=== PATIENT | male | born 1960 | race Caucasian/White ===

== ENCOUNTER 2020-08-07 09:21 | Emergency (ER) | payer MEDICARE, SELFPAY ==
[2020-08-07 09:31] VITALS: BP 170/91; PULSE 99; RESP 24; TEMP 36.5; O2SAT 99
--- NOTE | 2020-08-07 09:45 | ED.SKABFB ---
HPI - Skin/Abscess/Foreign Bdy General Chief complaint: Skin/Abscess/Foreign Body Stated complaint: Leg Swelling Time Seen by Provider: 08/07/20 09:35 Source: patient Mode of arrival: ambulatory Limitations: no limitations History of Present Illness HPI narrative: Yuri Guo is a 60 yo male with a PMH of HTN. prediabetes, high cholesterol. copd, asthma, is a morbidly obese male who comes to express care with complaints of cellulitis of his left leg. His left leg started with a red wendi on Wednesday at the medial upper calf and is spread rapidly to include the whole leg is red erythema erythematous warm to touch, edematous started at the ankle and goes to below the knee foot is still normal color although swollen. Patient reports this is a recurrent event and in the past has been treated with Cipro. States that it hurts to walk on his leg primarily because his foot is swollen although reports pain and tightness in the back of his leg. Discussed with patient the concern for underlying DVT with swelling in his left leg measuring 10 cm larger than the right Patient has not willing at this moment to go to the emergency room for blood work and a venous study however precautions are given to patient and explanations for why if antibiotics do not work in the next day or so that he needs to have further work-up Related Data Home Medications Medication Instructions Recorded Confirmed carvedilol 6.25 mg PO BID 08/07/20 08/07/20 gabapentin [Neurontin] 600 mg PO BID 08/07/20 08/07/20 lisinopril-hydrochlorothiazide 1 tablet PO DAILY 08/07/20 08/07/20 [Zestoretic] meloxicam 15 mg PO DAILY 08/07/20 08/07/20 metformin [Glucophage] 500 mg PO BID 08/07/20 08/07/20 simvastatin [Zocor] 10 mg PO DAILY 08/07/20 08/07/20 tizanidine 4 mg PO BID 08/07/20 08/07/20 Allergies Allergy/AdvReac Type Severity Reaction Status Date / Time diclofenac [From Voltaren] AdvReac Mild Unknown Verified 08/07/20 09:43 Review of Systems Review of Systems: Narrative: CONSTITUTIONAL: Denies fever, chills, sweats. Patient is sweating primarily due to his weight EYES: Denies visual changes, redness, discharge. ENT: Denies rhinorrhea, congestion, sore throat, otalgia. CARDIOVASCULAR: Denies chest pain, palpitations, edema. RESPIRATORY: Denies dyspnea, wheezing, cough GASTROINTESTINAL: Denies abdominal pain, nausea, vomiting, diarrhea. GENITOURINARY: Denies dysuria, hematuria, abnormal discharge SKIN: Denies rash or itching. Cellulitis of the right leg below the knee to the ankle NEUROLOGIC: Denies numbness, or focal weakness. PSYCHIATRIC: Denies anxiety or depression. [facility] Past Medical History Medical History Chronic pain COPD (chronic obstructive pulmonary disease) HTN (hypertension) Hyperlipidemia Prediabetes Family History Family History Father Family history of coronary artery disease Acute myocardial infarction, Onset Age: 63 Mother Cerebrovascular accident, Onset Age: 46 Social History Social History (Updated 08/07/20 @ 09:50 by Lisa Thrasher CNP) Smoking status: Former smoker Alcohol intake: never Gender identity (if verbalized by the patient): Male Comments At time of signature, I agree with nursing past medical, surgical, social and family history. There is no relevant family history pertinent to the presenting complaint. Exam Narrative: Exam Narrative: GENERAL: This is a well-nourished, well-developed patient, in moderate distress. Patient states that the leg looks worse than it feels HEAD: normocephalic, atraumatic. EYES: Sclera clear/white. Vision is grossly intact. EARS: External ears normal. Hearing grossly intact. NOSE: External nose normal without nasal discharge, nares without redness, no rhinorrhea. THROAT: Mucous membranes moist, NECK: Neck supple, non-tender CARDIOVASCULAR:
--- NOTE | 2020-08-07 09:52 | PC.NURSE ---
0931- bright erythema noted below Lt knee, tender and warm to touch- Lt knee 60.5cm/ ankle 39.5 cm, Rt knee 51.5 cm/ ankle 36.5
== END 2020-08-07 10:03 | disposition home or self-care (01) ==
PROVIDERS: Emergency Provider Nurse Practitioner; PCP Emergency Medicine
DX: L03.116 Cellulitis of left lower limb (principal); I10 Essential (primary) hypertension; E78.5 Hyperlipidemia, unspecified; R73.03 Prediabetes; J44.9 Chronic obstructive pulmonary disease, unspecified; E66.01 Morbid (severe) obesity due to excess calories; Z68.43 Body mass index [BMI] 50.0-59.9, adult; Z87.891 Personal history of nicotine dependence
CPT/HCPCS: 99213; G0463

== ENCOUNTER 2022-02-24 17:40 | Observation (INO) | payer MEDICARE, SELFPAY ==
[2022-02-24] VITALS (35 sets, daily range): BP systolic 117–179; BP diastolic 60–105; PULSE 59–120; RESP 10–23; TEMP 36.9; O2SAT 95–100
--- NOTE | ~2022-02-24 | CT_ITS ---
EXAMINATION: CT brain wo con DATE: 02/24/2022 19:55 INDICATION: Right-sided paresthesias. TECHNIQUE: Computed tomography (CT) of the head was performed without intravenous contrast. The dose- length product was 605.33 mGy-cm. Automated exposure control and iterative reconstruction technique w ere employed. COMPARISON: None FINDINGS: Normal brain parenchymal volume for age. No acute intracranial hemorrhage, infarction, mass or mass effect. There are scattered mild periventricular and subcortical white matter changes, most likely related to small vessel ischemic disease (microangiopathy). No ventriculomegaly or midline ioana ft. Basilar cisterns are patent. There is hyperostosis frontalis interna. There is intracranial ather osclerosis. Paranasal sinuses are pneumatized. Mastoids are pneumatized. No depressed skull fractures . IMPRESSION: 1. No acute intracranial abnormality. Reviewed, dictated and finalized at location A.
--- NOTE | ~2022-02-24 | CT_ITS ---
EXAMINATION: CTA chest PE protocol DATE: 02/24/2022 21:03 CDT INDICATION: Chest pain and shortness of breath. Elevated d-dimer. TECHNIQUE: Computed tomographic angiography (CTA) of the chest was performed with 100 mL Omnipaque-35 0 intravenous contrast. The dose-length product was 1179.95 mGy-cm. Maximum intensity projection 3D-r econstructions of the aorta and other arteries were constructed by the technologist on a separate wor kstation. Automated exposure control and iterative reconstruction technique were employed. COMPARISON: Chest x-ray dated 02/24/2022. FINDINGS: Heart size normal. Study is technically adequate without evidence for pulmonary embolism. N o significant pleural or pericardial effusion. No thoracic lymphadenopathy. No pneumothorax. No endob ronchial lesion. Moderate thoracic spondylosis. No focal airspace consolidation. No pulmonary nodules . IMPRESSION: 1. No acute cardiopulmonary disease. No evidence for pulmonary embolism. Reviewed, dictated and finalized at location A.
--- NOTE | ~2022-02-24 | US_ITS ---
EXAMINATION: US venous doppler [facility] DATE: 02/25/2022 09:42 INDICATION: Chest pain. TECHNIQUE: Grayscale ultrasound images without and with compression and Doppler ultrasound images of the bilateral lower extremity veins were obtained. COMPARISON: None. FINDINGS: The visualized portions of right common femoral vein, profunda (deep) femoral vein, femoral vein, pop liteal vein, peroneal veins, posterior tibial veins, and greater saphenous vein outflow are patent. The visualized portions of left common femoral vein, profunda femoral vein, femoral vein, popliteal v ein, and greater saphenous vein outflow are patent. There is thrombosis of the left posterior tibial veins. IMPRESSION: 1. Deep vein thrombosis involving the left posterior tibial veins. Reviewed, dictated and finalized at location A.
--- NOTE | ~2022-02-24 | XR_ITS ---
EXAMINATION: XR chest 1V 02/24/2022 20:01 INDICATION: Covid infection. Increased shortness of breath. PROCEDURE: AP view of the chest COMPARISON: 04/20/2007 FINDINGS: The lungs are clear. The cardiomediastinal silhouette is within normal limits. There are no pleural effusions. There is no pneumothorax suspected. IMPRESSION: 1: NO ACUTE CARDIOPULMONARY DISEASE. Reviewed, dictated and finalized at location A.
--- NOTE | 2022-02-24 17:44 | ECG_ITS ---
Measurements Intervals [place] Rate: 72 P: [place]: 0 QRS: 23 QRSD: 108 T: 29 QT: 382 QTc: 420 Interpretive Statements ATRIAL FIBRILLATION LOW QRS VOLTAGE IN PRECORDIAL LEADS BORDERLINE T WAVE ABNORMALITY- INFERIOR LEADS BASELINE ARTIFACT- I, III, AVL, V2-V3 ABNORMAL ECG Electronically Signed On 02-24-2022 21:25:58 CDT by Panchito Ingram D.O.
[2022-02-24 18:08] LABS: Basophils Percent Auto 0.3 % (0.2-1.2); Eosinophils Absolute Auto 0.2 K/mm3 (0-0.3); Eosinophils Percent Auto 3.1 % (0-4.4); Hematocrit 40.4 % (42.0-52.0); Hemoglobin 13.4 g/dL (14.0-18.0); Immature Granulocyte Absolute 0.03 K/mm3 (0.00-0.031); Immature Granulocyte Percent A 0.4 % (0-0.5); Lymphocytes Absolute Auto 1.71 K/mm3 (0.9-3.2); Lymphocytes Percent Auto 24.2 % (18.3-44.2); Mean Corpuscular HGB Conc 33.2 g/dl (32-36); Mean Corpuscular Hemoglobin 29.6 pg (26-34); Mean Corpuscular Volume 89.4 fl (80-100); Mean Platelet Volume 11.5 fl (7.4-10.4); Monocytes Absolute Auto 0.6 K/mm3 (0.1-0.6); Monocytes Percent Auto 8.3 % (2.6-8.5); Neutrophils Absolute Auto 4.5 K/mm3 (1.3-6.7); Neutrophils Percent Auto 63.7 % (45.5-73.1); Platelet Count Result 166 k/mm3 (150-375); Red Blood Count 4.52 M/mm3 (4.6-6.20); Red Cell Distribution Width 14.8 % (11.5-14.5); White Blood Count 7.1 K/mm3 (4.5-10.0)
[2022-02-24 18:20] LABS: INR 1.1; Prothrombin Time 13.8 Seconds (11.1-14.7)
[2022-02-24 18:21] LABS: Alanine Aminotransferase 22 U/L (6-50); Albumin Level 4.2 g/dL (3.5-5.1); Alkaline Phosphatase 75 U/L (38-126); Anion Gap 8 mmol/L (8-16); Aspartate Amino Transferase 29 U/L (17-59); Bilirubin,Total 0.6 mg/dL (0.2-1.3); Blood Urea Nitrogen 13 mg/dL (9-20); Calcium 9.5 mg/dL (8.4-10.2); Carbon Dioxide 21 mmol/L (22-30); Chloride 107 mmol/L (98-107); Estimated CRCL calculation 159 ml/min; Estimated Glomerular Filt Rate > 60; Glucose 91 mg/dL (65-110); Lactate Dehydrogenase 392 U/L (313-618); Partial Thromboplastin Time 37.9 SECONDS (22.3-36.8); Potassium 3.7 mmol/L (3.4-5.0); Sodium 136 mmol/L (137-145)
--- NOTE | 2022-02-24 18:24 | ED.SOB ---
HPI - SOB/Dyspnea General Chief Complaint: Shortness of Breath/Dyspnea <Nidhi Lemus PA-C - Last Filed: 02/24/22 23:14> Stated Complaint: covid positive, short of breath <Nidhi Lemus PA-C - Last Filed: 02/24/22 23:14> Time Seen by Provider: 02/24/22 17:41 <Nidhi Lemus PA-C - Last Filed: 02/24/22 23:14> Source: patient <Nidhi Lemus PA-C - Last Filed: 02/24/22 23:14> Mode of arrival: ambulatory <PAMELA Mir Last Filed: 02/24/22 23:14> Limitations: no limitations <Nidhi Lemus PA-C - Last Filed: 02/24/22 23:14> History of Present Illness HPI Narrative: This is a 61-year-old male that presents to the emergency department for worsening dyspnea. Reports he tested positive for COVID 8 days ago. He is vaccinated and boosted. Reports he has had chills, sweats, cough, congestion, and sore throat. Also reports over the last couple of days he has noted paresthesias in his right arm and leg. Denies chest pain, or lower extremity edema. <Nidhi Lemus PA-C - Last Filed: 02/24/22 23:14> Related Data Allergies/Adverse Reactions: Allergies Allergy/AdvReac Type Severity Reaction Status Date / Time diclofenac [From Voltaren] AdvReac Mild Unknown Verified 02/24/22 17:50 <Nidhi Lemus PA-C - Last Filed: 02/24/22 23:14> Review of Systems Review of Systems: CONSTITUTIONAL: Reports chills, or sweats. ENT: Reports congestion, sore throat CARDIOVASCULAR: Denies chest pain or edema. RESPIRATORY: Reports cough and dyspnea. MUSCULOSKELETAL: Reports back pain, joint pain, and myalgia. NEUROLOGIC: Reports numbness. Denies headache, or weakness. <PAMELA Mir Last Filed: 02/24/22 23:14> All systems reviewed & are unremarkable except as noted in HPI and below <Nidhi Lemus PA-C - Last Filed: 02/24/22 23:14> [facility] Past Medical History Medical History: Medical History Chronic pain COPD (chronic obstructive pulmonary disease) HTN (hypertension) Hyperlipidemia Prediabetes <Nidhi Lemus PA-C - Last Filed: 02/24/22 23:14> Family History Family History: Family History Father Family history of coronary artery disease Acute myocardial infarction, Onset Age: 63 Mother Cerebrovascular accident, Onset Age: 46 <Nidhi Lemus PA-C - Last Filed: 02/24/22 23:14> Social History Social History: Social History Social History: Patient does not drink caffeine, patient exercises daily. Smoking status: Never smoker Second hand tobacco smoke exposure: Yes Alcohol intake: current Alcohol use details: Patient drinks alcohol once in a while. Substance use: never Substance use type: does not use Additional living arrangements comments: Patient is . Additional occupation/education comments: Patient is disabled. Gender identity (if verbalized by the patient): Male Sexual Orientation (if Verbalized by the Patient): Straight or Heterosexual <Nidhi Lemus PA-C - Last Filed: 02/24/22 23:14> Exam Narrative: GENERAL: Well-appearing, well-nourished, and in no acute distress. HEAD: Normocephalic, atraumatic. EYES: PERRLA and EOMI. ENT: Nares clear, no rhinorrhea or epistaxis. Mucous membranes moist. Oropharynx without tonsillar hypertrophy exudate or other lesions. Bilateral TMs pearly walter non-bulging NECK: Supple. No adenopathy or masses. CHEST: Clear to auscultation. No respiratory distress. No wheezes rales or rhonchi HEART: Irregularly irregular. No murmur heard. Normal peripheral pulses. EXTREMITIES: Normal range of motion. No edema. Strength equal in bilateral upper and lower extremities (5/5) SKIN: Warm, dry, no rash. NEURO: No focal deficits. Alert and oriented x3. Cranial nerves II through XII grossly PSYCH: Normal moo
[2022-02-24 18:33] LABS: Troponin I < 0.012 ng/mL (0.000-0.034)
[2022-02-24 19:23] LABS: SARS-CoV-2 RNA PCR Positive
--- NOTE | 2022-02-24 21:47 | PM.IMHP ---
H&P: HPI History of Present Illness Date/Time: 02/24/22 21:47 Chief Complaint: shortness of breath Narrative: This is a 61-year-old male with past medical history significant for morbid obesity, atrial fibrillation, hypertension. Patient presents to the emergency room due to shortness of breath, night sweats, chills, fevers, tested positive for COVID 8 days ago patient is fully vaccinated and booster received as well against COVID. states that tested positive for COVID as well but that she is doing much better and she is at home , patient has had poor appetite, however no nausea, no vomiting, no abdominal pain has been getting progressively short of breath, had numbness and tingling sensation around his mouth with numbness as well and right-sided paresthesias with petechial rash on his chest which he attributes to cough, also tested his pulse oximetry at home and was 94%. Patient had a cough productive of yellow sputum which has now cleared. Preliminary workup has been essentially nonrevealing. A CT angiogram of the chest did not show acute pulmonary embolism. Patient also found to be on atrial fibrillation. Patient retested positive for COVID now has been admitted for further evaluation management and treatment. Review of Systems Review of Systems: NIGHT SWEATS, SHORTNESS OF BREATH, GENERALIZED MALAISE, COUGH, POOR APPETITE. Constitutional: Constitutional: Reports chills, Reports excessive sweating, Reports fatigue, Reports fever(s), Reports malaise, Reports night sweats and Reports poor appetite Eyes: Eyes: Denies change in vision, Denies floaters, Denies irritation and Denies other visual disturbances ENT: Denies dysphagia, Denies vertigo, Denies dizziness, Denies nasal congestion, Denies nasal obstruction and Denies odynophagia Cardiovascular: Cardiovascular: Denies irregular heart rhythm, Denies leg ulcers, Denies leg edema, Denies lightheadedness, Denies radiating jaw, neck or arm pain and Denies palpitations Respiratory: Respiratory: Reports cough, Denies hemoptysis, Reports excessive phlegm production and Reports dyspnea Gastrointestinal: Gastrointestinal: Denies abdominal pain, Denies dyspepsia, Denies heartburn, Denies diarrhea, Denies nausea and Denies vomiting Genitourinary: Genitourinary: Denies dysuria Musculoskeletal: Musculoskeletal: Reports myalgias Integumentary/Breasts: Skin/Breast: Denies rash Neurologic: Denies focal weakness, Denies Sensory deficit (Neuro), Reports tingling and Reports paresthesias Psychiatric: Psychiatric: Reports no additional psychiatric complaints and Reports as per HPI Endocrine: Endocrine: Denies cold intolerance, Denies fatigue, Denies flushing, Denies heat intolerance, Denies polyphagia, Denies polydipsia and Denies palpitations Hematologic/Lymphatic: Hematologic/Lymphatic: Reports no additional hematologic/lymphatic complaints and Reports as per HPI Allergic/Immunologic: Allergic/Immunologic: Reports no additional allergic/immunologic complaints and Reports as per HPI PMFSH Past Medical History Medical History Chronic pain COPD (chronic obstructive pulmonary disease) HTN (hypertension) Hyperlipidemia Prediabetes Family History Family History Father Family history of coronary artery disease Acute myocardial infarction, Onset Age: 63 Mother Cerebrovascular accident, Onset Age: 46 Social History Social History (Updated 02/25/22 @ 02:22 by Magda Morris RN) Social History: Patient does not drink caffeine, patient exercises daily. Smoking packs per day: 1.5 Smoking cigarettes per day: 30.0 Years smoked: 11 Smoking pack-years: 16.50 Smoking status: Former smoker Tobacco type: cigarettes Second hand tobacco smoke exposure: Yes Alcohol intake: current Alcohol use details: Patient drinks alcohol once in a [facility]
[2022-02-24 22:18] LABS: Troponin I < 0.012 ng/mL (0.000-0.034)
[2022-02-24] MEDS: HEPARIN SOD/D5W 100 UNITS/ML 25,000 UNITS/250 ML BAG 15 UNITS IV CONT (23:08)
[2022-02-24] MEDS: HEPARIN SODIUM 5,000 UNITS/ML VIAL 10000 UNITS IV PUSH (23:10)
[2022-02-25] VITALS (13 sets, daily range): BP systolic 142–177; BP diastolic 78–87; PULSE 53–105; RESP 14–20; TEMP 36.6–36.7; O2SAT 99–100; BMI 47.1
--- NOTE | 2022-02-25 | ECHO_ITS ---
Patient Info Name: Yuri Guo Age: 61 years : 1960 Gender: Male Ht: 78 in Wt: 404 lbs BSA: 3.25 m2 HR: 71 bpm BP: 171 / 80 mmHg Heart Rhythm: Atrial Fibrillation Exam Date: 02/25/2022 11:56 AM Exam Location: [facility] Patient Status: Outpatient Admit Date: 02/24/2022 Staff Ordering Physician: Adolfo Clements MD Charge Entry Specialist: Jose Azevedo, ARIANNA, RT Attending Provider: Cecilia Champagne MD Referring Physician: Starr MAR; Exam Type: CA echo doppler color flow Study Info Indications I48.1 - Persistent atrial fibrillation Complete two-dimensional, color flow and Doppler transthoracic echocardiogram is performed. Strain analysis performed. Summary 1. Technically difficult study with limited views. Regional wall motion assessment limited due to poor endomyocardial border definition. 2. Left ventricular chamber dimension is normal. 3. Left ventricular systolic function is normal, estimated at 65-70%. 4. There is mildly increased left ventricular wall thickness. 5. Global longitudinal strain is moderately elevated at -13 %. 6. Left atrial chamber dimension is severely enlarged. 7. Right atrial chamber dimension is severely enlarged. 8. There is no aortic valve stenosis. 9. There is mild mitral valve regurgitation. 10. There is mild tricuspid valve regurgitation. 11. No pulmonary hypertension, estimated pulmonary arterial systolic pressure is 27 mmHg. Left Ventricle Left ventricular chamber dimension is normal. Left ventricular systolic function is normal, estimated at 65-70%. There is mildly increased left ventricular wall thickness. The left ventricular diastolic function is indeterminate. Global longitudinal strain is moderately elevated at -13 %. Technically difficult study with limited views. Regional wall motion assessment limited due to poor endomyocardial border definition. Right Ventricle Right ventricular chamber dimension is normal. Right ventricular systolic function is normal. Left Atria Left atrial chamber dimension is severely enlarged. Right Atria Right atrial chamber dimension is severely enlarged. Aortic Valve The aortic valve is not well visualized. There is no aortic valve stenosis. There is no aortic valve regurgitation. Pulmonic Valve The pulmonic valve is not well visualized. Mitral Valve The mitral valve has normal leaflets. There is mild mitral valve regurgitation. The mitral valve annulus is mildly calcified. Tricuspid Valve The tricuspid valve leaflets are not well visualized. There is mild tricuspid valve regurgitation. No pulmonary hypertension, estimated pulmonary arterial systolic pressure is 27 mmHg. Pericardium/Pleural The pericardium appears normal. There is small pericardial effusion. Aorta The aortic root size at the sinus of Valsalva is normal. There is mild aortic atherosclerosis. Left Ventricular Outflow Tract Name Value Normal LVOT 2D LVOT Diameter 2.3 cm LVOT Doppler LVOT Peak Gradient 3 mmHg LVOT Mean Gradient 2 mmHg LVOT VTI
[2022-02-25 00:57] LABS: Troponin I < 0.012 ng/mL (0.000-0.034)
--- NOTE | 2022-02-25 01:25 | ADMGEN ---
This patient, Yuri Guo, was admitted to IMU Room 209-01. Patient/family oriented to hospital policies and general routines including ID bracelet, bed and alarms, visiting hours, pain management, procedures, bathroom and other care routines, personal items, smoking policy, room service/diet, and visiting hours. Information on how to activate the Rapid Response Team has been discussed. Patient/Family are encouraged to report perceived risks to care and to ask questions if they do not understand what they are told or what they should do.
[2022-02-25 02:14] LABS: Glucose Point of Care 93 mg/dl (65-105)
[2022-02-25 05:02] LABS: Basophils Percent Auto 0.5 % (0.2-1.2); Eosinophils Absolute Auto 0.3 K/mm3 (0-0.3); Eosinophils Percent Auto 3.9 % (0-4.4); Hematocrit 35.8 % (42.0-52.0); Hemoglobin 12.4 g/dL (14.0-18.0); Immature Granulocyte Absolute 0.03 K/mm3 (0.00-0.031); Immature Granulocyte Percent A 0.4 % (0-0.5); Lymphocytes Absolute Auto 2.56 K/mm3 (0.9-3.2); Mean Corpuscular HGB Conc 34.6 g/dl (32-36); Mean Corpuscular Hemoglobin 30.9 pg (26-34); Mean Corpuscular Volume 89.3 fl (80-100); Mean Platelet Volume 11.5 fl (7.4-10.4); Monocytes Absolute Auto 0.7 K/mm3 (0.1-0.6); Monocytes Percent Auto 9.6 % (2.6-8.5); Neutrophils Absolute Auto 3.9 K/mm3 (1.3-6.7); Neutrophils Percent Auto 51.6 % (45.5-73.1); Platelet Count Result 156 k/mm3 (150-375); Red Blood Count 4.01 M/mm3 (4.6-6.20); Red Cell Distribution Width 14.6 % (11.5-14.5); White Blood Count 7.5 K/mm3 (4.5-10.0)
[2022-02-25 05:13] LABS: INR 1.2; Prothrombin Time 15.2 Seconds (11.1-14.7)
[2022-02-25 08:20] LABS: Glucose Point of Care 93 mg/dl (65-105)
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
[2022-02-25] MEDS: carvediloL 6.25 MG TABLET PO (09:14)
[2022-02-25] MEDS: lisinopriL 20 MG TABLET PO (09:14)
[2022-02-25 11:35] LABS: Partial Thromboplastin Time 59.4 SECONDS (22.3-36.8)
--- NOTE | 2022-02-25 12:00 | PM.DS ---
DS: Admitting Diagnosis Discharge Date 02/25/22 1200 Admitting Diagnosis COVID 19/New onset Afib/DVT DS: Discharge Diagnosis Discharge Diagnosis (1) COVID-19: Code(s): U07.1 - COVID-19 Status: Acute Assessment and Plan: admit to regular medical floor chest x-ray and CT angiogram with no infiltrates not requiring incremental amounts of oxygen no indication for remdesivir at this time continue to monitor supportive care Seems stable (2) Atrial fibrillation: Qualifiers: Atrial fibrillation type: persistent (not longstanding) Qualified Code(s): I48.19 - Other persistent atrial fibrillation Code(s): I48.91 - Unspecified atrial fibrillation Status: Acute Assessment and Plan: rate controlled in the 90s Continue carvedilol to 6.25mg PO BID Start patient on Xarelto Follow up with cardiology as indicated (3) COPD (chronic obstructive pulmonary disease): Qualifiers: COPD type: unspecified COPD Qualified Code(s): J44.9 - Chronic obstructive pulmonary disease, unspecified Code(s): J44.9 - Chronic obstructive pulmonary disease, unspecified Status: Acute Assessment and Plan: breathing treatment as needed (4) HTN (hypertension): Qualifiers: Hypertension type: essential hypertension Qualified Code(s): I10 - Essential (primary) hypertension Code(s): I10 - Essential (primary) hypertension Status: Acute Assessment and Plan: resume home meds Remains high at 171/80 Give one dose of hydralazine IV Probably related to medical condition continue to monitor (5) Diabetes mellitus: Code(s): E11.9 - Type 2 diabetes mellitus without complications Status: Acute Assessment and Plan: Current glucose is 91 Looks to be diet controlled as he is not on any medications at home (6) Morbid obesity with BMI of 45.0-49.9, adult: Code(s): E66.01 - Morbid (severe) obesity due to excess calories; Z68.42 - Body mass index [BMI] 45.0-49.9, adult Status: Acute Assessment and Plan: Lifestyle changes Diet changes (7) DVT (deep venous thrombosis): Code(s): I82.409 - Acute embolism and thrombosis of unspecified deep veins of unspecified lower extremity Status: Acute Assessment and Plan: Venous doppler found a DVT in the left posterior tibial veins Xarelto started Probably secondary to sediment lifestyle Education given about bleeding precautions DS: Summary Hospital Course Hospital Course: Patient is 61-year-old male with a past medical history of morbid obesity, atrial fibrillation, hypertension who presented the emergency room due to shortness of breath, night sweats, chills, fevers. Patient was noted to test positive for COVID 8 days ago and is fully vaccinated with a booster. Upon arrival to the ED it was noted that patient was in AFib with a rate controlled of 72. This seems to be a new finding for this patient as he denies having AFib in the past. Cardiology was consulted and patient has been started on anticoagulation. CTA was completed which showed no acute cardiopulmonary disease or evidence of PE. Chest x-ray showed no acute cardiopulmonary disease. Head CT showed no intracranial abnormality. Venous Doppler did show a DVT in the left posterior tibial veins. The patient has been started on anticoagulation this should be sufficient enough for the DVT as well. Patient feels great is ready to go home. He denies any chest pain, shortness of breath, nausea, vomiting, diarrhea, constipation, weakness or fatigue. Patient did state that he has some shortness of breath however it is his normal COPD stuff. I did go over with the patient about bleeding precautions while being on the Xarelto. Echo was also performed and showed. Patient is stable for discharge for labs and vital signs. Patient is really wanting to go at this [facility]
[2022-02-25 12:25] LABS: Glucose Point of Care 117 mg/dl (65-105)
[2022-02-25] MEDS: RIVAROXABAN 15 MG TABLET PO (14:46)
--- NOTE | 2022-02-25 15:57 | PC.NURSE ---
Discharge forms given and explained to pt. PIV taken out by PEDICAB DRIVER and pt taken down to Lobby to meet with all personal belongings, and discharge forms. No events noted.
== END 2022-02-25 15:00 | disposition home or self-care (01) ==
LOC: ANHED 23:10 → ANHIMU 02-25 09:45
PROVIDERS: Physician Assistant; Admitting Provider Internal Medicine; Emergency Provider General Practice; PCP Emergency Medicine; Visit Provider Nurse Practitioner
DX: U07.1 COVID-19 (principal); I48.91 Unspecified atrial fibrillation; J44.9 Chronic obstructive pulmonary disease, unspecified; E11.9 Type 2 diabetes mellitus without complications; E66.01 Morbid (severe) obesity due to excess calories; I82.442 Acute embolism and thrombosis of left tibial vein; I10 Essential (primary) hypertension; E78.5 Hyperlipidemia, unspecified; Z77.22 Contact with and (suspected) exposure to environmental tobacco smoke (acute) (chronic); Z68.42 Body mass index [BMI] 45.0-49.9, adult; Z79.899 Other long term (current) drug therapy
CPT/HCPCS: 36415; 70450; 71045; 71275; 80053; 82728; 82948; 83615; 84443; 84484; 85025; 85380; 85610; 85730; 93005; 93306; 93970; 96365; 96375; 99285; A9270; C9803; G0378; J0131; J1644; Q9967; U0003; U0005

== ENCOUNTER 2022-04-17 00:22 | Day surgery (SDC) | payer MEDICARE, SELFPAY ==
[2022-04-15 15:46] VITALS: BMI 46.6
[2022-04-17] VITALS (7 sets, daily range): BP systolic 107–134; BP diastolic 57–87; PULSE 63–74; RESP 17–18; TEMP 36.4; O2SAT 98–100
[2022-04-17 12:22] LABS: Anion Gap 11 mmol/L (8-16); Blood Urea Nitrogen 12 mg/dL (9-20); Carbon Dioxide 29 mmol/L (22-30); Chloride 97 mmol/L (98-107); Estimated CRCL calculation 155 ml/min; Estimated Glomerular Filt Rate > 60; Glucose 89 mg/dL (65-110); Magnesium 1.9 mg/dL (1.6-2.3); Potassium 3.8 mmol/L (3.4-5.0); Sodium 137 mmol/L (137-145)
--- NOTE | 2022-04-17 13:12 | WPDANESEPPF ---
Anes - Initial Pre Proc Eval Procedure: Operation Date: 04/17/22 14:30 Proposed Procedures p Electrical Cardioversion - Adolfo Clements MD Date/Time: 04/17/22 13:12 Surgeon: Adolfo Clements MD Pre Op Diagnosis: A-Fib Patient Data Age: 61 Gender: M Height: 1.98 m Weight: 183.2 kg Last Vital Signs Temp 97.6 F 04/17/22 12:00 Pulse 68 04/17/22 12:00 Resp 17 04/17/22 12:00 BP 125/71 04/17/22 12:00 Pulse Ox 98 04/17/22 12:00 O2 Del Method Room Air 04/17/22 12:00 Allergies Allergy/AdvReac Type Severity Reaction Status Date / Time diclofenac [From [facility]] AdvReac Mild Unknown Verified 04/17/22 12:09 Home Medications Medication Instructions Recorded Confirmed Type gabapentin 600 mg tablet 600 mg PO HS 02/25/22 04/15/22 History rivaroxaban 20 mg tablet (Xarelto) 20 mg PO DAILY@1700 #30 tabs 02/25/22 04/15/22 Rx tizanidine 4 mg tablet 4 mg PO HS 02/25/22 04/15/22 History albuterol sulfate 2.5 mg/3 mL 2.5 mg (3 mL) inhalation Q4-6H PRN 02/27/22 04/15/22 Rx (0.083 %) solution for nebulization shortness of breath or wheezing #540 mL fluticasone propionate 50 1 spray intranasal BID #16 grams 02/27/22 04/15/22 Rx mcg/actuation nasal spray,suspension (Flonase Allergy Relief) semaglutide 0.25 mg or 0.5 mg (2 0.5 mg (0.4 mL) subcut WEEKLY #6 mL 03/30/22 04/15/22 Rx mg/1.5 mL) subcutaneous pen injector carvedilol 6.25 mg tablet 6.25 mg PO BID 04/15/22 04/15/22 History famotidine 20 mg tablet 40 mg PO DAILY 04/15/22 04/15/22 History lisinopril 20 1 tablet PO DAILY 04/15/22 04/15/22 History mg-hydrochlorothiazide 25 mg tablet simvastatin 10 mg tablet 10 mg PO HS 04/15/22 04/15/22 History Laboratory Tests 04/17/22 11:59 Sodium 137 mmol/L mmol/L (137-145) Potassium 3.8 mmol/L mmol/L (3.4-5.0) Chloride 97 mmol/L L mmol/L (98-107) Carbon Dioxide 29 mmol/L mmol/L (22-30) Anion Gap 11 mmol/L mmol/L (8-16) BUN 12 mg/dL mg/dL (9-20) Creatinine 0.80 mg/dL mg/dL (0.7-1.3) Estim Creat Clear Calc 155 ml/min ml/min Estimated GFR > 60 (59 - ) Glucose 89 mg/dL mg/dL (65-110) Calcium 9.0 mg/dL mg/dL (8.4-10.2) Magnesium 1.9 mg/dL mg/dL (1.6-2.3) Patient hx anesthesia problems: none Family hx anesthesia problems: none Results Review: All pre-operative results and documents have been reviewed as part of the pre-operative evaluation. FOR[facility] Past Medical History Medical History Chronic pain COPD (chronic obstructive pulmonary disease) HTN (hypertension) Hyperlipidemia Prediabetes Family History Family History Father Family history of coronary artery disease Acute myocardial infarction, Onset Age: 63 Mother Cerebrovascular accident, Onset Age: 46 Social History Social History (Updated 02/25/22 @ 02:22 by Magda Morris RN) Social History: Patient does not drink caffeine, patient exercises daily. Smoking packs per day: 1.5 Smoking cigarettes per day: 30.0 Years smoked: 12 Smoking pack-years: 18.00 Smoking status: Former smoker Tobacco type: cigarettes Second hand tobacco smoke exposure: Yes Additional smoking assessment comments: quit smoking in 1986 Alcohol intake: current Drinks per week: 0 Alcohol use details: approximatly once a month Substance use: current Substance use type: marijuana Other substance usage details: uses edibles at night to help sleep Last use: 04/14/22 Living arrangements: with family Additional living arrangements comments: Patient is . Additional occupation/education comments: Patient is disabled. Gender identity (if verbalized by the patient): Male Sexual Orientation (if Verbalized by the Patient): Straight or Heterosexual Spiritual care concerns: No Agree to bl
--- NOTE | 2022-04-17 14:03 | P.PCNCC_ITS ---
Cardiac Cath Procedure Note Date of procedure:: 04/17/22 Performing physician:: Adolfo Clements MD Indication:: Persistent atrial fibrillation Brief clinical history:: This is a 61-year-old man who was referred for consultation because of atrial fibrillation of unknown chronicity. He is asymptomatic of his arrhythmia. Principal comorbidity is morbid obesity. An attempt at restoring sinus rhythm has been recommended following sufficient anticoagulation. Procedure Procedure performed:: DC cardioversion Sedation/Medication given:: Sedation per Anesthesia Estimated blood loss:: 0 Procedure note:: Patient was brought to the GI lab where the anesthesia service evaluated the patient and provided sedation. He was placed in the supine position with fibrillator patches in the AP position. The device was synchronized and set at 200 joules. Following sedation he was shocked at 200 joules with no change in the cardiac rhythm. He was still well sedated. The energy was turned up to 360 joules and resynchronize. I shock at that energy level also did not change the rhythm. Findings:: As above Conclusion:: Unsuccessful but uncomplicated attempt at DC cardioversion of atrial fibrillation with persistent atrial fibrillation which will be the patient's chronic rhythm going forward Adolfo Clements MD [facility]
--- NOTE | 2022-04-17 14:45 | ECG_ITS ---
Measurements Intervals [place] Rate: 72 P: CT: 0 QRS: 9 QRSD: 111 T: 23 QT: 396 QTc: 434 Interpretive Statements ATRIAL FIBRILLATION BORDERLINE AV CONDUCTION DELAY LOW QRS VOLTAGE IN PRECORDIAL LEADS ABNORMAL ECG COMPARED TO ECG 02/24/2022 17:54:14 INTRAVENTRICULAR CONDUCTION DELAY NOW PRESENT Electronically Signed On 04-17-2022 11:58:18 CDT by Panchito Ingram D.O.
== END 2022-04-17 14:45 | disposition home or self-care (01) ==
LOC: ANHENDO 00:23 → ANHCPCTRAN 13:29 → ANHENDO 05-01 12:09
PROVIDERS: PCP Emergency Medicine; Visit Provider Specialist
PROC: 5A2204Z Restoration of Cardiac Rhythm, Single (ICD-10-PCS; principal; 2022-04-17 14:30)
DX: I48.19 Other persistent atrial fibrillation (principal); I45.9 Conduction disorder, unspecified; Z86.16 Personal history of COVID-19; I10 Essential (primary) hypertension; E78.5 Hyperlipidemia, unspecified; J44.9 Chronic obstructive pulmonary disease, unspecified; G47.30 Sleep apnea, unspecified; G89.29 Other chronic pain; Z86.718 Personal history of other venous thrombosis and embolism; Z87.891 Personal history of nicotine dependence; Z79.01 Long term (current) use of anticoagulants; F12.90 Cannabis use, unspecified, uncomplicated; Z79.51 Long term (current) use of inhaled steroids; E66.01 Morbid (severe) obesity due to excess calories; Z68.42 Body mass index [BMI] 45.0-49.9, adult
CPT/HCPCS: 36415; 80048; 83735; 92960; J2704

== ENCOUNTER 2023-11-02 13:08 | Outpatient (CLI) | payer MEDICARE, SELFPAY ==
--- NOTE | ~2023-11-02 | CT_ITS ---
EXAMINATION: CT shoulder RT w con DATE: 11/02/2023 14:11 INDICATION: 2 months of right-sided shoulder pain TECHNIQUE: High resolution computed tomography (CT) of the right shoulder was performed with 100 mL O mnipaque-350 intravenous contrast. Additional sagittal and coronal reconstructions were performed. Au tomated exposure control and iterative reconstruction technique were employed. The dose-length produc t was 520.03 mGy-cm. COMPARISON: None FINDINGS: Bone alignment is normal. The acromion undersurface is flat in morphology (type I) with small subacro mial spurs along the lateral margin of the acromion. No fracture. Mild right glenohumeral osteoarthri tis with mild subarticular cystlike changes along the inferior rim of the glenoid. There is also mild acromioclavicular osteoarthritis. No glenohumeral joint effusion or other abnormal fluid collections . No asymmetric muscular atrophy of the rotator cuff or remaining shoulder girdle musculature. No pat hologically enlarged lymphadenopathy at the right axilla or in the visualized base of the right neck or right-sided the superior mediastinum. Visualized portion of the right upper lung are clear. IMPRESSION: 1. Mild right glenohumeral and acromioclavicular osteoarthritis. Reviewed, dictated and finalized at location A.
== END 2023-11-02 13:09 ==
LOC: GOSHIMG 13:09
PROVIDERS: PCP Emergency Medicine; Visit Provider Emergency Medicine
DX: M25.511 Pain in right shoulder (principal); M19.011 Primary osteoarthritis, right shoulder
CPT/HCPCS: 73201; Q9967

== ENCOUNTER 2025-05-16 10:59 | Inpatient (IN) | payer MEDICARE, SELFPAY ==
[2025-05-16] VITALS (23 sets, daily range): BP systolic 90–155; BP diastolic 50–80; PULSE 60–95; RESP 12–20; TEMP 36.4–36.9; O2SAT 95–100; BMI 49.6
--- NOTE | ~2025-05-16 | CT_ITS ---
Yuri Guo EXAMINATION: CT abdomen pelvis w con COMPARISON: None HISTORY: anemia TECHNIQUE: Axial images were obtained through the abdomen, pelvis post administration of IV contrast. Oral contrast was also administered. Coronal reconstruction images were obtained from the axial views. CT scan performed using dose optimization techniques including the following automated exposure control; adjustment of mA and/or kV; use of iterative reconstruction technique. Automatic exposure control was used to reduce radiation dose. Permanent radiation dose record is archived to PACS. FINDINGS: CT abdomen: LUNG BASES: Mild cardiomegaly. Chronic changes in the lung bases. Elevation left hemidiaphragm. LIVER: Nodularity of the liver contours with heterogeneity of the liver which probably relates to underlying cirrhotic disease. Portal vein patent. No intrahepatic biliary duct dilatation. SPLEEN: Unremarkable. KIDNEYS: Right Kidney: Right kidney lower pole simple cyst 1.4 x 1.5 cm. Left Kidney: Unremarkable. No calculi. No hydronephrosis ADRENAL GLANDS: Unremarkable. PANCREAS: Unremarkable. GALLBLADDER/BILIARY: Gallbladder is contracted with hyperemia of the gallbladder mucosa. STOMACH AND ESOPHAGUS: The stomach is decompressed. BOWEL/MESENTERY: Moderate fecal content, no colitis or diverticulitis. Appendix normal. Mesentery normal. No dilated small bowel loops. ADENOPATHY/RETROPERITONEUM: No lymphadenopathy. AORTA/VASCULATURE: Normal caliber aorta. FREE FLUID OR FREE AIR: None. CT pelvis: SOLID ORGANS/REPRODUCTIVE: Unremarkable. BLADDER: Within normal limits. OSSEOUS STRUCTURES: Severe degenerative changes acetabular femoral joints and lumbar spine. No sclerotic or lytic lesions. OVERLYING SOFT TISSUES: Unremarkable. IMPRESSION: 1. No etiology to explain anemia. Reviewed, dictated and finalized at location P.
--- NOTE | ~2025-05-16 | CT_ITS ---
CTA CHEST ABDOMEN PELVIS CLINICAL HISTORY: acute anemia of unknown etiology . COMPARISON: CT abdomen and pelvis one day prior CTA chest 02/24/2022 TECHNIQUE: Helical CT performed from thoracic inlet to symphysis pubis IV contrast information not listed in PACS Coronal, sagittal reformats. Multiplanar MIPS CT images acquired with automatic exposure control for dose reduction DLP: 2488 mGy-cm FINDINGS: CHEST- Respiratory motion artifact. Thoracic Aorta: No dissection. No aneurysm. Pulmonary arteries: Normal caliber. Suboptimal opacification and motion artifact; no large central PE, more distal vessels cannot be evaluated. Lungs/Pleura: Clear. Heart: Cardiomegaly. RV/LV ratio elevated. Coronary artery calcifications Tracheobronchial tree: Patent. Nodes: No enlarged nodes. Bones: No acute bony abnormality. Soft tissues: Unremarkable. ABDOMEN/PELVIS- CTA Abdominal aorta: No aneurysm or dissection. Atherosclerotic disease. Common iliac arteries: Patent. External iliac arteries: Patent. Hypogastric arteries: Patent. CFAs: Patent. Proximal visualized SFAs and profundas: Patent. Celiac: Patent. Mild ostial narrowing and inferior angulation from median arcuate ligament attenuation. SMA: Patent. ZEINA: Patent. Renal arteries: Moderate stenoses. NON-CTA Liver: Cirrhosis, steatosis. Gallbladder: Mild nonspecific wall thickening. Spleen: Unremarkable. Pancreas: Unremarkable. Adrenal glands: Unremarkable. Kidneys: Right kidney- No hydronephrosis. No renal stones. Left kidney- No hydronephrosis. No renal stones. Distal esophagus/stomach: Unremarkable. Small bowel loops: Normal caliber and wall thickness. Colon: Normal caliber and wall thickness. Normal RLQ appendix. Nodes: No enlarged nodes. Peritoneum: No ascites. No free air. Urinary bladder: Unremarkable. Prostate: Unremarkable. Bones: No acute bony abnormality. Soft tissues: Unremarkable. IMPRESSION: CHEST- 1. No acute cardiopulmonary findings. ABDOMEN/PELVIS- 1. No acute abdominopelvic findings. Reviewed, dictated and finalized at location R.
--- NOTE | 2025-05-16 11:07 | ECG_ITS ---
Test Date: 2025-05-16 11:13:37 Measurements Intervals [place] Rate: 71 P: 0 NV: 0 QRS: 15 QRSD: 114 T: 23 QT: 398 QTc: 435 Interpretive Statements ATRIAL FIBRILLATION INTRAVENTRICULAR CONDUCTION DELAY LOW QRS VOLTAGE IN PRECORDIAL LEADS NONSPECIFIC ST & T-WAVE ABNORMALITY- DIFFUSE LEADS ABNORMAL ECG BASELINE ARTIFACT- I, II, III, AVR, AVL, AVF No previous ECG available for comparison Electronically Signed On 05-16-2025 11:32:42 CDT by Panchito Ingram D.O.
[2025-05-16 11:22] LABS: Immature Granulocyte Percent A 0.9 % (0-0.5); Immature Reticulocyte Fraction 39.0 % (3.0-15.9); Lymphocytes Absolute Auto 1.55 K/mm3 (0.9-3.2); Mean Corpuscular HGB Conc 28.1 g/dl (32-36); Mean Corpuscular Hemoglobin 20.6 pg (26-34); Mean Corpuscular Volume 73.4 fl (80-100); Nucleated Red Blood Cells Absolute Auto 0.000 K/mm3 (0.0-0.012); Nucleated Red Blood Cells Perc 0.0 % (0.0-0.2); Platelet Count Result 232 k/mm3 (150-375); Red Blood Count 2.52 M/mm3 (4.6-6.20); Reticulocyte Hemoglobin Conten 19.6 pg (28.2-36.6); Reticulocytes Absolute 0.06 10^6/uL (0.02-0.10); White Blood Count 9.6 K/mm3 (4.5-10.0)
[2025-05-16 11:24] LABS: Hematocrit 18.5 % (42.0-52.0); Hemoglobin 5.2 g/dL (14.0-18.0)
[2025-05-16 11:33] LABS: INR 1.4; Prothrombin Time 17.2 Seconds (11.1-14.7)
[2025-05-16 11:34] LABS: Partial Thromboplastin Time 44.3 Seconds (22.3-36.8)
--- NOTE | 2025-05-16 11:35 | ED_ITS ---
HPI - General Adult General Chief complaint: Recheck/Abnormal Lab/Rx Stated complaint: hgb low Time Seen by Provider: 05/16/25 11:03 History of Present Illness HPI narrative: 64-year-old male presents to the emergency department for evaluation for increased generalized weakness. Patient states over the last few weeks he has had worsening exertional shortness of breath. Patient did have follow-up with his primary care physician yesterday had baseline labs drawn was shown to have significant anemia. Patient is on Xarelto for atrial fibrillation but denies any black tarry stool. Related Data Home Medications ?Medication ?Instructions ?Recorded ?Confirmed ?Last Taken ?Type famotidine 20 mg tablet 40 mg PO DAILY 04/15/2209/0905/15/25 History Allergies Allergy/AdvReac Type Severity Reaction Status Date / Time diclofenac (From Voltaren) AdvReac Intermediate Redness of Verified 05/16/25 15:46 Skin Review of Systems 2 Review of Systems: All systems reviewed & are unremarkable except as noted in HPI and below PMFSH Past Medical History Medical History (Updated 05/16/25 @ 17:50 by Hallie Patel APRN) Diabetes mellitus Sleep apnea Asthma DVT (deep venous thrombosis) Atrial fibrillation Other cervical disc displacement, unspecified cervical region Spinal stenosis, cervical region Other dorsalgia History of myocardial infarction Gastroenteritis Chronic venous stasis dermatitis Cellulitis and abscess of lower extremity Influenza COVID-19 Chronic pain Allergic reaction Hyperlipidemia Hyperlipidemia HTN (hypertension) COPD (chronic obstructive pulmonary disease) Surgical History Surgical History History of excision of mass on back of next History of ear surgery right Family History Family History Father Family history of coronary artery disease Acute myocardial infarction, Onset Age: 63 Mother Cerebrovascular accident, Onset Age: 46 Social History Social History Social History: Patient does not drink caffeine, patient exercises daily. Smoking packs per day: 1.5 Smoking cigarettes per day: 30.0 Years smoked: 13 Smoking pack-years: 19.50 Smoking status: Former smoker Tobacco type: cigarettes Second hand tobacco smoke exposure: Yes Additional smoking assessment comments: quit smoking in 1986 Alcohol intake: current Drinks per week: 1 Alcohol use details: very rarely Substance use: current Substance use type: marijuana Other substance usage details: edibles Last use: 04/14/22 Do You Feel Safe in your Home?: Yes Lack of Transportation: No Lack of Food: Never True Current Housing: I Have Housing Concerned About Future Housing: No Difficulty Paying Gas/Electric Bills: YES Difficulty Paying for Meds: YES Currently Unemployed: No Education: High School Diploma/GED Difficulty w/ Childcare or Family Care: No Living arrangements: with family Additional living arrangements comments: Patient is . Occupation/Education: other Additional occupation/education comments: Patient is disabled. Gender identity (if verbalized by the patient): Male Sexual Orientation (if Verbalized by the Patient): Straight or Heterosexual Spiritual care concerns: No Agree to blood products: No Exam 2 Narrative: APPEARANCE: Tired appearing HEAD: normocephalic, atraumatic. EYES: PERRLA/EOMI, conjunctivae clear. NOSE: Normal no drainage EARS:TMS clear with good light reflex. THROAT: Pharynx clear, no exudate. NECK: Supple. No adenopathy, no masses. RESPIRATORY: Airway patent, respirations nonlabored. Clear to auscultation bilaterally, no rales, rhonchi, wheezing. CARDIOVASCULAR: Regular rate and rhythm without murmurs rubs or gallops. ABDOMINAL: Soft, nontender, nondistended, normal bowel sounds MUSCULOSKELETAL: Moves all extremities. Strength/ROM intact, No edema, No calf tenderness. NEURO: Alert. Cranial nerves II through XII intact. grossly intact SKIN: Warm, dry. Normal Color Course Vital Signs Vital signs: Vital Signs Temperature 97.8 F 05/16/25 11:07 Pulse Rate 74 05/16/25 11:07 Respiratory Rate 13 05/16/25 11:07 Blood Pressure 122/70 05/16/25 11:07 Pulse Oximetry 99 05/16/25 11:07 Oxygen Delivery Room Air 05/16/25 11:07 Temperature 98.4 F 05/16/25 16:00 Pulse Rate 67 05/16/25 18:00 Respiratory Rate 18 05/16/25 16:00 Blood Pressure 129/64 05/16/25 16:00 Pulse Oximetry 98 05/16/25 16:00 Oxygen Delivery Room Air 05/16/25 15:55 Medical Decision Making MDM Narrative Medical decision making narrative: 64-year-old male presents emergency department for evaluation for increased generalized fatigue exertional shortness of breath any hemoglobin of 5.8 as outpatient. Patient's repeat hemoglobin here was 5.2. Patient denies any active bleeding. Patient was Hemoccult negative on his digital rectal exam. 2 units of packed red blood cells were ordered. Case was discussed with hospitalist patient was accepted for admission. Patient's iron binding studies did show a low iron and patient does have a microcytic anemia. Patient family updated on results of the workup plan for admission. All questions concerns addressed Critical Care Procedure Note Authorized and Performed by: Dominguez Lo Total critical care time: Approximately 36 minutes Due to a high probability of clinically significant, life threatening deterioration, the patient required my highest level of preparedness to intervene emergently and I personally spent this critical care time directly and personally managing the patient. This critical care time included obtaining a history; examining the patient; pulse oximetry; ordering and review of studies; arranging urgent treatment with development of a management plan; evaluation of patient's response to treatment; frequent reassessment; and, discussions with other providers. This critical care time was performed to assess and manage the high probability of imminent, life-threatening deterioration that could result in multi-organ failure. It was exclusive of separately billable procedures and treating other patients and teaching time. Please see MDM section and the rest of the note for further information on patient assessment and treatment. Differential Diagnosis Differential Diagnosis: GI bleed, iron deficiency, microcytic anemia, COVID, RSV, influenza Vital Signs Vital Signs: Vital Signs Temperature 97.8 F 05/16/25 11:07 Pulse Rate 74 05/16/25 11:07 Respiratory Rate 13 05/16/25 11:07 Blood Pressure 122/70 05/16/25 11:07 Pulse Oximetry 99 05/16/25 11:07 Oxygen Delivery Room Air 05/16/25 11:07 Temperature 98.4 F 05/16/25 16:00 Pulse Rate 67 05/16/25 18:00 Respiratory Rate 18 05/16/25 16:00 Blood Pressure 129/64 05/16/25 16:00 Pulse Oximetry 98 05/16/25 16:00 Oxygen Delivery Room Air 05/16/25 15:55 Lab Data Lab results reviewed: Yes I reviewed the patient's lab results. 05/16/25 18:02 05/16/25 11:15 Labs: Lab Results 05/16/25 05/16/25 Range/Units 11:14 11:15 WBC 9.6 (4.5-10.0) K/mm3 RBC 2.52 L (4.6-6.20) M/mm3 Hgb 5.2 L* D (14.0-18.0) g/dL Hct 18.5 L* (42.0-52.0) % MCV 73.4 L (80-100) fl MCH 20.6 L (26-34) pg MCHC 28.1 L (32-36) g/dl RDW 17.8 H (11.5-14.5) % Plt Count 232 (150-375) k/mm3 MPV 8.8 (7.4-10.4) fl Immature Gran % (Auto) 0.9 H (0-0.5) % Neut % (Auto) 67.2 (45.5-73.1) % Lymph % (Auto) 16.1 L (18.3-44.2) % [place] % (Auto) 11.2 H (2.6-8.5) % Eos % (Auto) 4.0 (0-4.4) % Baso % (Auto) 0.6 (0.2-1.2) % Lymph # (Auto) 1.55 (0.9-3.2) K/mm3 [place] # (Auto) 1.1 H (0.1-0.6) K/mm3 Eos # (Auto) 0.4 H (0-0.3) K/mm3 Baso # (Auto) 0.1 (0.0-0.1) K/mm3 Abs Immat Gran (auto) 0.09 H (0.00-0.031) K/mm3 Absolute Neuts (auto) 6.5 (1.3-6.7) K/mm3 Absolute Nucleated RBC 0.000 (0.0-0.012) K/mm3 Band Neutrophils % Not Reportable Nucleated RBC % 0.0 (0.0-0.2) % Platelet Estimate Adequate (Adequate) Hypochromasia 2+ Anisocytosis 1+ Ovalocytes Occasional Schistocytes None seen Absolute Retic 0.06 (0.02-0.10) 10^6/uL Percent Retic 2.41 (0.7-4.3) % Immature Retic Fraction 39.0 H (3.0-15.9) % Retic Hgb Content 19.6 L (28.2-36.6) pg PT 17.2 H (11.1-14.7) Seconds INR 1.4 APTT 44.3 H (22.3-36.8) Seconds Sodium 127 L (137-145) mmol/L Potassium 3.4 (3.4-5.0) mmol/L Chloride 95 L (98-107) mmol/L Carbon Dioxide 20 L (22-30) mmol/L Anion Gap 12 (4-12) mmol/L BUN 16 (9-20) mg/dL Creatinine 1.53 H (0.7-1.3) mg/dL Estim Creat Clear Calc 79 ml/min Estimated GFR 46 L (59 - ) Glucose 89 (65-110) mg/dL Calcium 8.7 (8.4-10.2) mg/dL Iron 27 L (49-181) ug/dL TIBC 426 (265-497) ug/dL % Saturation 6 L (20-50) % Total Bilirubin 0.4 (0.2-1.3) mg/dL AST 23 (17-59) U/L ALT 15 (6-50) U/L Alkaline Phosphatase 62 (38-126) U/L Total Protein 6.8 (6.3-8.2) g/dL Albumin 3.7 (3.5-5.1) g/dL Vitamin B12 350.0 (239-931) pg/mL Folate 4.2 (2.76->20) ng/mL TSH (Reflex) Pending Blood Type A Positive Antibody Screen Negative Crossmatch See Detail Imaging Data Radiologist's impression: Impressions Abdomen/Pelvis CT 05/16/25 12:32 IMPRESSION: 1. No etiology to explain anemia. Critical Care Time Critical Care Time Critical Care Time: Yes Total Critical Care Time: 36 Discharge Plan Discharge Clinical Impression: Microcytic anemia, Low iron stores Patient Disposition: Still a Patient Condition: Serious
[2025-05-16 11:39] LABS: Iron 27 ug/dL (49-181)
[2025-05-16 11:44] LABS: Anisocytosis 1+; Hypochromasia 2+; Ovalocytes Occasional
[2025-05-16 11:46] LABS: Schistocytes None Seen
[2025-05-16] MEDS: LACTATED RINGERS 1,000 ML 999 ML IV CONT (11:46)
--- OUTSIDE RECORDS SUMMARY | 2025-05-16 11:47 | XMS_ITS | Clinical Summary ---
Author Organization [facility] [address] Address [address] [place] [address] Care Team Providers Care Ballast Regulator Operator Name Role Phone Adolfo Vasquez MD Primary Care Provide r Allergies Active Allergy Reactions Criticality Noted Date Comments Diclofenac Unknown Low 09/14/2023 Medications carvedilol (COREG) 6.25 mg tablet take 1 tablet by oral route 2 times every day with food 0 0 6 Active HYDROcodone-nae taminophen (LORCET PLUS) 10-325 mg per tablet take 1 tablet by oral route every 4 - 6 hours as needed for pain 0 0 6 Active gabapentin (NEURONTIN) 600 mg tablet take 1 tablet by oral route 3 times every day 0 0 6 Active lisinopril-hydr oCHLOROthiazide (PRINZIDE,ZESTO RETIC) 20-25 mg per tablet take 1 tablet by oral route every day 0 0 6 Active tiZANidine (ZANAFLEX) 4 mg tablet take 1 tablet by oral route every 8 hours as needed not to exceed 3 doses in 24 hours 0 0 6 Active meloxicam (MOBIC) 15 mg tablet take 1 tablet by oral route every day 0 0 6 Active nitroglycerin (NITROSTAT) 0.[address] 1 tablet by sublingual route at the 1st sign of attack; may repeat every 5 min 3 tablets max 30 3 6 Active cannabidiol, CBD, (medical cannabis) each Take 1 Dose by mouth nightly Brownie nightly Active Xarelto 20 mg tablet Take 1 tablet (20 mg total) by mouth daily 90 tablet 3 2 Active semaglutide (OZEMPIC SUBQ) Inject under the skin Active Active Problems Problem Noted Date Diagnosed Date Permanent atrial fibrillation 12/17/2022 Gastroesophageal reflux disease with esophagitis 02/07/2016 Overview (11/20/2016): GERD with esophagitis Family history of coronary artery disease 2015 Overview (11/20/2016): Family history of premature CAD Abnormal cardiovascular stress test 02/07/2016 Overview (11/20/2016): Abnormal stress test Morbid obesity 02/07/2016 Overview (11/20/2016): Morbid obesity with BMI of 70 and over, adult Benign hypertension 02/07/2016 Overview (11/20/2016): HTN (hypertension), benign Obstructive sleep apnea syndrome 02/07/2016 Overview (11/20/2016): ANDRE treated with BiPAP Dyspnea on exertion 02/07/2016 Overview (11/20/2016): OLIVEIRA (dyspnea on exertion) Dyslipidemia 02/07/2016 Overview (11/20/2016): Dyslipidemia Chest pain 02/07/2016 Overview (11/20/2016): Chest pain of uncertain etiology Chest pain on exertion 02/07/2016 Overview (11/20/2016): Chest pain on exertion Encounters Date Type Department Care Team Description 04/30/[address] [facility] Cardiology [address] [facility] [address] [place] [address] Adolfo Clements MD 04/26/2025 2:00 PM CDT Ancillary Procedure [facility] Cardiology at [address] [place] [address] Permanent atrial fibrillation (HCC) 04/17/2025 2:00 PM CDT Office Visit [facility] Cardiology [address] [place] [address] Adolfo Clements MD Family history of coronary artery disease (Primary Dx); Permanent atrial fibrillation (HCC); Need for lipid screening from Last 3 Months Medical History Medical History Date Comments Atrial fibrillation (HCC) Family History Medical History Relation Name Comments Coronary artery disease Brother cabg ; Diabetes Father 2 Diabetes mellit us; Heart attack Father 2 Myocardial infa rction; Hypertension Father 2 Hypertension; Coronary artery disease Mother CABG ; Heart attack Sister Myocardial infa rction; Relation Name Status Comments Brother Father 1 (Age 63) Father 2 Mother Sister Social History Tobacco Use Types Packs/Day Years Used Date Smoking Tobacco: Former Cigarettes 0 04/03/1977 - 04/03/1987 Smokeless Tobacco: Never Tobacco Cessation:Counseling Given: Not Answered Alcohol Use Standard Drinks/Week Comments No 0 (1 standard drink = 0.6 oz pur e alcohol) AUDIT-C Answer Date Recorded Q1: How often do you have a drink containing alc ohol? Monthly or less 03/17/2022 Q2: How many drinks containi ng alcohol do you have on a typical day when you are drinking? 1 or 2 03/17/2022 Q3: How often do you have si x or more drinks on one occasion? 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 Gender Identity Male 03/20/2022 11:31 AM CDT Sexual Orientation Straight 03/20/2022 11 :31 AM CDT Obstetrics History Last Filed Vital Signs Vital Sign Reading Time Taken Comments Blood Pressure 138/76 04/17/2025 1:50 PM CDT Pulse 67 04/17/2025 1:50 PM CDT Temperature - - Respiratory Rate - - Oxygen Saturation 99% 04/17/2025 1:50 PM CDT Inhaled Oxygen Concentration - - Weight 181 kg (399 lb 1.6 oz) 04/17/2025 1:50 PM CDT Height 182.9 cm (6') 04/17/2025 1:50 PM CDT Body Mass Index 54.13 04/17/2025 1:50 PM CDT Plan of Treatment Health Maintenance Due Date Last Done Comments Colon Cancer Screening-Colonoscopy 1961 Depression Screening 1961 Hepatitis C Screening 1961 Prostate Cancer Screening-PSA 1961 DTaP/Tdap/Td Vaccine (1 - Tdap) 1972 Hepatitis B Screening 1979 Regular Well Visit/Exam 18-64 1979 Pneumococcal vaccine <65 (1 of 2 - PCV) 1980 Zoster Vaccine (1 of 2) 2011 Covid-19 Vaccine (5 - 2024-2 6 season) 2025 03/03/2022, 07/24/2021, 11/29/2020, Additional history exists Influenza Vaccine (#1) 2025 07/24/2021 Procedures Procedure Name Priority Date/Time Associated Diagnosis Comments TRANSTHORACIC ECHO (TTE) COMPLETE W DOPPLER/CF W CONTRAST Routine 04/26/2025 3:01 PM CDT Permanent atrial fibrillation (HCC) POCT LIPID PANEL Routine 04/17/2025 2:00 PM CDT Need for lipid screening from Last 3 Months Results * TRANSTHORACIC ECHO (TTE) COMPLETE W DOPPLER/CF W CONTRAST (04/26/2025 3:01 PM CDT) Estimated EF 70 % CONS SCIMAGE EF Mod BP 68 % CONS SCIMAGE Anatomical Region Laterality Modality Ultrasound 04/26/2025 1:55 PM CDT Narrative 04/26/2025 4:[address] [facility] Cardiology [address] , [address], [place] [address] P:[phone] P:[phone] Echocardiographic Report Patient Name: YURI JUAREZ E : 1960 Study Date: 04/26/2025 1:55:14 PM Sex: M Digital Traffic Coordinator: AURORA Location: [facility] Ref Provider: ADOLFO CLEMENTS Height(Cm): 183 BSA: 3.03 Weight(Kg): 181 Heart Rate: 93 BP: 125 / 84 Quality: Definity contrast agent used to enhance endocardial border definition Order Provider: ADOLFO CLEMENTS PROCEDURES: Echocardiographic Report: Transthoracic echocardiogram with complete 2D, M-Mode, color Doppler examination and Definity contrast. INDICATIONS: I48.21 Permanent atrial fibrillation. MEASUREMENTS: 2D/MM Value Range Doppler Value Range EF Mod BP 68 % [ 52 - 72 ] KAUSHIK Vmax 2.43 cm2 [ 2.00 - 4.00 ] EF Teich MM 50 % [ 52 - 72 ] AV Mean PG 7 mmHg Estimated EF 70 % AV Peak Dread 1.74 m/s [ 1.00 - 1.70 ] LVIDs 2D 3.82 cm [ 2.50 - 4.00 ] AV Peak PG 12 mmHg LVIDs MM 6.10 cm [ 2.50 - 4.00 ] AV VTI 32.56 cm LVPWd 2D 1.25 cm [ 0.60 - 1.00 ] LVOT Diam 2.13 cm [ 1.70 - 2.10 ] LVPWd MM 0.95 cm [ 0.60 - 1.00 ] LVOT Peak Dread 1.19 m/s [ 0.70 - 1.10 ] IVSd 2D 1.06 cm [ 0.60 - 1.00 ] LVOT VTI 25.48 cm IVSd MM 1.08 cm [ 0.60 - 1.00 ] MV E Peak Dread 1.11 m/s [ 0.60 - 1.30 ] LA Dimension MM 6.27 cm [ 3.00 - 4.00 ] MV A Peak Dread 1.09 m/s [ 1.00 - 1.20 ] AoR Diam MM 3.94 cm [ 3.10 - 3.70 ] MV Decel Time 208 msec [ 104 - 258 ] LA Volume 112.20 ml [ 18.00 - 58.00 ] PV Peak Dread 1.05 m/s [ 0.40 - 0.80 ] LA Volume Index 37 cc/m2 [ 16 - 28 ] TR Peak Dread 2.50 m/s [ 1.00 - 2.80 ] ACS MM 2.42 cm [ 1.50 - 2.60 ] TR Peak PG 25 mmHg RA Volume 96.27 ml RVSP 33.00 mmHg [ 10.00 - 36.00 ] RV S` 0.13 m/s Lateral E` 0.15 m/s [ 0.10 - 0.15 ] Septal E` 0.14 m/s [ 0.08 - 0.15 ] E` 0.15 m/s E/E` 8 Tapse 2.39 cm [ 1.71 - 5.00 ] 2D/MM Value Range Doppler Value Range - FINDINGS: Interpretation Site: Exam was interpreted at [facility]. Left Ventricle: Normal left ventricular size. Definity contrast agent used to visually enhance endocardial wall motion and contractility. Normal global left ventricular systolic function. Indeterminate diastolic function. Ejection fraction is measured at 68 %. Ejection Fraction is visually estimated to be 70 %. Right Ventricle: Normal right ventricular size. Left Atrium: There is severe enlargement of left atrium. Right Atrium: There is moderate enlargement of right atrium. Atrial Septum: Normal atrial septum. Mitral Valve: Normal appearance of the mitral valve. Mild mitral annular calcification. Aortic Valve: Aortic cusps appear mildly sclerotic. Tricuspid Valve: Normal appearance of the tricuspid valve. Estimated peak RVSP is 33 mmHg. Mild tricuspid regurgitation. Pulmonic Valve: Pulmonic valve not well visualized. Pericardium: Normal pericardium with no significant pericardial effusion. Aorta: Normal aortic root. IVC: Normal size and normal respiratory collapse consistent with normal right atrial pressure (<5 mmHg). Pulmonary Artery: Normal pulmonary artery size. CONCLUSIONS: Normal left ventricular size. Definity contrast agent used to visually enhance endocardial wall motion and contractility. Normal global left ventricular systolic function. Indeterminate diastolic function. Ejection fraction is measured at 68 %. Ejection Fraction is visually estimated to be 70 %. Aortic cusps appear mildly sclerotic. Atrial fibrillation. Marked biatrial enlargement. Electronically Signed By: Adolfo Clements MD, [facility] 04/26/2025 4:25:42 PM CDT Procedure Note Adolfo Clements MD - 04/26/2025 [facility] Cardiology [address], [address], [place] [address] P:[phone] P:[phone] Echocardiographic Report Patient Name: YURI JUAREZ E : 1960 Study Date: 04/26/2025 1:55:14 PM Sex: M Digital Traffic Coordinator: AURORA Location: [facility] Ref Provider: ADOLFO CLEMENTS Height(Cm): 183 BSA: 3.03 Weight(Kg): 181 Heart Rate: 93 BP: 125 / 84 Quality: Definity contrast agent used to enhance endocardial borderdefinition Order Provider: ADOLFO CLEMENTS PROCEDURES: Echocardiographic Report: Transthoracic echocardiogram with complete 2D, M-Mode, color Dopplerexamination and Definity contrast. INDICATIONS: I48.21 Permanent atrial fibrillation. MEASUREMENTS: 2D/MM Value Range DopplerValue Range EF Mod BP 68 % [ 52 - 72 ] KAUSHIK Vmax 2.43cm2 [ 2.00 - 4.00 ] EF Teich MM 50 % [ 52 - 72 ] AV Mean PG 7mmHg Estimated EF 70 % AV Peak Dread 1.74m/s [ 1.00 - 1.70 ] LVIDs 2D 3.82 cm [ 2.50 - 4.00 ] AV Peak PG 12mmHg LVIDs MM 6.10 cm [ 2.50 - 4.00 ] AV VTI32.56 cm LVPWd 2D 1.25 cm [ 0.60 - 1.00 ] LVOT Diam 2.13cm [ 1.70 - 2.10 ] LVPWd MM 0.95 cm [ 0.60 - 1.00 ] LVOT Peak Dread 1.19m/s [ 0.70 - 1.10 ] IVSd 2D 1.06 cm [ 0.60 - 1.00 ] LVOT VTI25.48 cm IVSd MM 1.08 cm [ 0.60 - 1.00 ] MV E Peak Dread 1.11m/s [ 0.60 - 1.30 ] LA Dimension MM 6.27 cm [ 3.00 - 4.00 ] MV A Peak Dread 1.09m/s [ 1.00 - 1.20 ] AoR Diam MM 3.94 cm [ 3.10 - 3.70 ] MV Decel Time 208msec [ 104 - 258 ] LA Volume 112.20 ml [ 18.00 - 58.00 ] PV Peak Dread 1.05m/s [ 0.40 - 0.80 ] LA Volume Index 37 cc/m2 [ 16 - 28 ] TR Peak Dread 2.50m/s [ 1.00 - 2.80 ] ACS MM 2.42 cm [ 1.50 - 2.60 ] TR Peak PG 25mmHg RA Volume 96.27 ml RVSP33.00 mmHg [ 10.00 - 36.00 ] RV S` 0.13 m/s Lateral E` 0.15 m/s [ 0.10 - 0.15 ] Septal E` 0.14 m/s [ 0.08 - 0.15 ] E` 0.15 m/s E/E` 8 Tapse 2.39 cm [ 1.71 - 5.00 ] 2D/MM Value Range DopplerValue Range - FINDINGS: Interpretation Site: Exam was interpreted at [facility]. Left Ventricle: Normal left ventricular size. Definity contrast agent used to visuallyenhance endocardial wall motion and contractility. Normal global left ventricularsystolic function. Indeterminate diastolic function. Ejection fraction is measuredat 68 %. Ejection Fraction is visually estimated to be 70 %. Right Ventricle: Normal right ventricular size. Left Atrium: There is severe enlargement of left atrium. Right Atrium: There is moderate enlargement of right atrium. Atrial Septum: Normal atrial septum. Mitral Valve: Normal appearance of the mitral valve. Mild mitral annularcalcification. Aortic Valve: Aortic cusps appear mildly sclerotic. Tricuspid Valve: Normal appearance of the tricuspid valve. Estimated peak RVSP is 33 mmHg.Mild tricuspid regurgitation. Pulmonic Valve: Pulmonic valve not well visualized. Pericardium: Normal pericardium with no significant pericardial effusion. Aorta: Normal aortic root. IVC: Normal size and normal respiratory collapse consistent with normal rightatrial pressure (<5 mmHg). Pulmonary Artery: Normal pulmonary artery size. CONCLUSIONS: Normal left ventricular size. Definity contrast agent used to visuallyenhance endocardial wall motion and contractility. Normal global left ventricularsystolic function. Indeterminate diastolic function. Ejection fraction is measuredat 68 %. Ejection Fraction is visually estimated to be 70 %. Aortic cusps appear mildly sclerotic. Atrial fibrillation. Marked biatrial enlargement. Electronically Signed By: Adolfo Clements MD, [facility] 04/26/2025 4:25:42 PM CDT Adolfo Clements MD CV ECHO PROCEDURES Final Result * (ABNORMAL) POCT lipid panel (04/17/2025 2:00 PM CDT) Cholesterol, POC 107 <200 MG/DL HDL, POC 32(A) >=40 mg/dL Triglycerides, POC 88 <=149 mg/dL LDL Cholesterol POC 57 <=129 mg/dL Chol/HDL Ratio, POC 1.8 NONE Non-HDL Cholesterol, POC 75 NONE mg/dL Cholesterol Total, POC 107 30 - 199 mg/dL Capillary blood 04/17/2025 2 :00 PM CDT Adolfo Clements MD POINT OF CARE TEST ORDER KAREN Final Result from Last 3 Months Insurance [facility] Address: [address] [address] [place] [address] [place] [address] Care Teams Ballast Regulator Operator Relationship Specialty Start Date End Date Adolfo Vasquez MD [address] [place] [address] PCP - General 11/17/16
--- OUTSIDE RECORDS SUMMARY | 2025-05-16 11:47 | XMS_ITS | Encounter Summary ---
Author Organization [facility] Address [address] [place] [address] Care Team Providers Care Database Reporting Consultant Name Role Phone Adolfo Vasquez MD Primary Care Provide r Encounter Details Date Type Department Care Team (Late st Contact Info) Description 04/30/2025 Telephone [facility] Cardiology [address] [facility] [address] [place] [address] Adolfo Clements MD [address] [place] [address] Social History Tobacco Use Types Packs/Day Years Used Date Smoking Tobacco: Former Cigarettes 0 04/03/1977 - 04/03/1987 Smokeless Tobacco: Never Alcohol Use Standard Drinks/Week Comments No 0 [...] on file 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. Pt verbalizes understanding. * Telephone Encounter - Olga De Leon RN - 04/30/2025 11:46 AM CDT Will forward to [facility]. Please advise. * Telephone Encounter - Eve Ochoa - 04/30/2025 11:12 AM CDT Patient called in to go over most recent echo results. Please advise. Thank you. Contact : [phone] documented in this encounter Plan of Treatment Not on file documented as of this encounter Visit Diagnoses Not on filedocumented in this encounter Care Teams Database Reporting Consultant Relationship Specialty Start Date End Date Adolfo Vasquez MD [address] [place] [address] PCP - General 11/17/16 documented as of this encounter
--- OUTSIDE RECORDS SUMMARY | 2025-05-16 11:47 | XMS_ITS | Encounter Summary ---
Author Organization [facility] Address [address] [place] [address] Care Team Providers Care Motel Manager Name Role Phone Adolfo Vasquez MD Primary Care Provider [phone] Encounter Details Date Type Department Care Team (Latest Contact Info) Description 06/21/2018 Abstract [facility] , Ros Javier MD Social History Tobacco Use Types Packs/Day Years Used Date Smoking Tobacco: Never Assessed Sex and Gender Information Value Date Recorded Sex Assigned at Not on file Legal Sex Male 5:41 PM CDT Gender Identity Not on file Sexual Orientation Not on file documented as of this encounter Plan of Treatment Not on file documented as of this encounter Visit Diagnoses Not on filedocumented in this encounter Care Teams Motel Manager Relationship Specialty Start Date End Date Adolfo Vasquez MD [address] [facility] [address] [place] [address] PCP - General 10/04/14 documented as of this encounter
--- OUTSIDE RECORDS SUMMARY | 2025-05-16 11:47 | XMS_ITS | Clinical Summary ---
Author Organization [facility] Address [address] [place] [address] Care Team Providers Care Revolving Field Assembler Name Role Phone Adolfo Vasquez MD Primary Care Provider Social History Tobacco Use Types Packs/Day Years Used Date Smoking Tobacco: Never Assessed Sex and Gender Information Value Date Recorded Sex Assigned at Not on file Legal Sex Male 5:41 PM CDT Gender Identity Not on file Sexual Orientation Not on file Last Filed Vital Signs Vital Sign Reading Time Taken Comments Blood Pressure 126/76 03/20/2013 3:17 PM CDT Pulse 80 03/20/2013 3:17 PM CDT Temperature - - Respiratory Rate - - Oxygen Saturation - - Inhaled Oxygen Concentration - - Weight 208.7 kg (460 lb) 03/20/2013 3:17 PM CDT Height 198.1 cm (6' 6) 03/20/2013 3:17 PM CDT Body Mass Index 53.16 03/20/2013 3:17 PM CDT Plan of Treatment Health Maintenance Due Date Last Done Comments Colorectal Cancer Screening Colonoscopy (10 Years) 1961 Annual Physical 1964 Hepatitis C 1979 DTaP, Tdap and Td Vaccines ( 1 - Tdap) 1980 Pneumococcal Vaccine: 50+ Ye ars (1 of 1 - PCV) 2011 Zoster Vaccines (1 of 2) 2011 COVID-19 Vaccine ( - 2023-2 5 season) 2025 RSV Immunization or 60+ Years (1 - 1-dose 75+ series) 2036 Meningococcal B Vaccine Aged Out No l onger eligible based on patient's age to complete this topic Meningococcal Vaccine Aged Out No gokul piero eligible based on patient's age to complete this topic RSV Immunizations Under 20 Months Aged Out No longer eligible based on patient's age to complete this topic Care Teams Revolving Field Assembler Relationship Specialty Start Date End Date Adolfo Vasquez MD [address] [facility] [place] [address] PCP - General 10/04/14
[2025-05-16 11:49] LABS: Percent Iron Saturation 6 % (20-50)
[2025-05-16 11:59] LABS: Alanine Aminotransferase 15 U/L (6-50); Albumin Level 3.7 g/dL (3.5-5.1); Alkaline Phosphatase 62 U/L (38-126); Anion Gap 12 mmol/L (4-12); Aspartate Amino Transferase 23 U/L (17-59); Bilirubin,Total 0.4 mg/dL (0.2-1.3); Blood Urea Nitrogen 16 mg/dL (9-20); Calcium 8.7 mg/dL (8.4-10.2); Carbon Dioxide 20 mmol/L (22-30); Chloride 95 mmol/L (98-107); Estimated CRCL calculation 79 ml/min; Estimated Glomerular Filt Rate 46; Glucose 89 mg/dL (65-110); Potassium 3.4 mmol/L (3.4-5.0); Sodium 127 mmol/L (137-145); Total Protein 6.8 g/dL (6.3-8.2)
--- OUTSIDE RECORDS SUMMARY | 2025-05-16 12:21 | XMS_ITS | Clinical Summary ---
Author Organization [facility] [address] Address [address] [place] [address] Care Team Providers Care Marketing Communication Manager Name Role Phone Adolfo Vasquez MD [...] Type Department Care Team Description 04/30/2025 Telephone [facility] Cardiology [address] [facility] [address] [place] [address] Adolfo Clements MD 04/26/2025 2:00 PM CDT Ancillary Procedure [facility] Cardiology at [address] [place] [address] Permanent atrial fibrillation (HCC) 04/17/2025 2:00 PM CDT Office Visit [facility] Cardiology [address] [place] [address] Adolfo Clements MD Family history of coronary [...] on file 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 Left Ventricle: Normal left ventricular size. [...] enlargement. Electronically Signed By: Adolfo Clements MD, [facility] 04/26/2025 4:25:42 PM CDT Procedure Note Adolfo Clements MD - 04/26/2025 [facility] Cardiology [address], [address], [place] [address] P:[phone] P:[phone] Echocardiographic Report Patient Name: YURI JUAREZ E : 1960 Study Date: 04/26/2025 1:55:14 PM Sex: M Bar Welder: AURORA Location: [facility] Ref Provider: ADOLFO CLEMENTS [...] FINDINGS: Interpretation Site: Exam was interpreted at [facility]. Left Ventricle: Normal left ventricular size. [...] enlargement. Electronically Signed By: Adolfo Clements MD, [facility] 04/26/2025 4:25:42 PM CDT Adolfo Clements MD [...] Final Result from Last 3 Months Insurance [employer] MEDICARE ADVANTAGE Care Teams Marketing Communication Manager Relationship Specialty Start Date End Date Adolfo Vasquez MD [address] [place] [address] PCP - General 11/17/16
--- OUTSIDE RECORDS SUMMARY | 2025-05-16 12:21 | XMS_ITS | Clinical Summary ---
Author Organization [facility] Address [address] [place] [address] Care Team Providers Care Manager Academic Name Role Phone Adolfo Vasquez MD Primary Care Provider [phone] Social History Tobacco Use Types Packs/Day Years [...] age to complete this topic Care Teams Manager Academic Relationship Specialty Start Date End Date Adolfo Vasquez MD [address] [facility] [address] [place] [address] PCP - General 10/04/14
--- OUTSIDE RECORDS SUMMARY | 2025-05-16 12:21 | XMS_ITS | Encounter Summary ---
Author Organization [facility] Address [address] [place] [address] Care Team Providers Care Civil Engineering Technician Name Role Phone Adolfo Vasquez MD Primary Care Provider Encounter Details Date Type Department Care Team (Latest Contact Info) Description 06/21/2018 Abstract [facility] , Ros Javier MD Social [...] on filedocumented in this encounter Care Teams Civil Engineering Technician Relationship Specialty Start Date End Date Adolfo Vasquez MD [address] [facility] [address] [place] [address] PCP - General 10/04/14 documented as of this encounter
--- OUTSIDE RECORDS SUMMARY | 2025-05-16 12:21 | XMS_ITS | Encounter Summary ---
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 Pt verbalizes understanding. * Telephone Encounter - Olga De Leon RN - 04/30/2025 11:46 AM CDT Will forward to [facility]. Please advise. * Telephone Encounter - Eve Ochoa - 04/30/2025 11:12 AM CDT Patient called in to go over most recent echo results. Please advise. Thank you. Contact : [phone] documented in this encounter Plan of Treatment Not on file documented as of this encounter Visit Diagnoses Not on filedocumented in this encounter Care Teams Resource Manager Relationship Specialty Start Date End Date Adolfo Vasquez MD [address] [place] [address] PCP - General 11/17/16 documented as of this encounter
[2025-05-16 12:39] LABS: Vitamin B12 350.0 pg/mL (239-931)
[2025-05-16] MEDS: SODIUM CHLORIDE 0.9% IV 250 ML 30 ML IV CONT ×2 (13:07→20:05)
[2025-05-16] MEDS: TUBING, BLOOD SET 1 EACH XX (13:07)
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
[2025-05-16 15:12] LABS: Add Urine Microscopic? YES; Appearance Urine Clear (Clear); Glucose Urine UA Negative (Negative); Leukocyte Esterase Ur Trace LEU/UL (Negative); Nitrate Urine Negative (Negative); Non Pathogenic Casts 0-2; Specific Grav Ur 1.015 (1.001-1.035)
[2025-05-16 15:24] LABS: Total Protein Urine Random 10 mg/dL; Ur Ttl Prot Creatinine Ratio 0.24 mg/mg (0-0.20)
[2025-05-16 15:26] LABS: Urea Random Urine 154 MG/DL
--- NOTE | 2025-05-16 16:03 | ADMGEN ---
This patient, Yuri Guo, was admitted to IMU Room 207-01. Patient/family oriented to hospital policies and general routines including ID bracelet, bed and alarms, visiting hours, pain management, procedures, bathroom and other care routines, personal items, smoking policy, room service/diet, and visiting hours. Information on how to activate the Rapid Response Team has been discussed. Patient/Family are encouraged to report perceived risks to care and to ask questions if they do not understand what they are told or what they should do.
[2025-05-16] MEDS: SODIUM CHLORIDE 0.9% IV 1,000 ML 100 ML IV CONT (17:03)
[2025-05-16] MEDS: SALINE 0.65% NAS SOLN 44 ML BTL 1 SPRAY NASAL ×2 (18:20→23:02)
[2025-05-16 18:21] LABS: Hematocrit 23.0 % (42.0-52.0)
[2025-05-16 18:23] LABS: Hemoglobin 6.7 g/dL (14.0-18.0)
[2025-05-16] MEDS: SIMVASTATIN 10 MG TABLET PO (18:29)
[2025-05-16 18:30] LABS: Creatine Kinase 38 U/L (55-170)
[2025-05-16 18:35] LABS: Anion Gap 9 mmol/L (4-12); Blood Urea Nitrogen 14 mg/dL (9-20); Calcium 8.9 mg/dL (8.4-10.2); Carbon Dioxide 24 mmol/L (22-30); Chloride 95 mmol/L (98-107); Estimated CRCL calculation 99 ml/min; Estimated Glomerular Filt Rate 57; Glucose 96 mg/dL (65-110); Potassium 3.2 mmol/L (3.4-5.0); Sodium 128 mmol/L (137-145)
[2025-05-16 19:25] LABS: Ferritin 12.70 ng/mL (11.1-264)
[2025-05-16] MEDS: TUBING, BLOOD PLUM PUMP TUBING 1 EACH XX (20:15)
[2025-05-16] MEDS: POTASSIUM CHLORIDE 20 MEQ ER TABLET 40 MEQ PO (20:24)
[2025-05-16 21:13] LABS: Thyroid Stimulating Hormone Reflex 1.500 uIU/mL (0.465-4.68)
[2025-05-16] MEDS: GABAPENTIN 300 MG CAPSULE 600 MG PO (23:00)
[2025-05-16] MEDS: TIZANIDINE HCL 4 MG TABLET PO (23:02)
[2025-05-16] MEDS: HYDROcodone/acetaminophen (*CRX) 5-325 MG TABLET 1 TAB PO (23:05)
[2025-05-16] MEDS: MENTHOL 10% / METHYL SALICYLATE 15% 57 GM TUBE 1 APPLIC TOPICAL (23:30)
[2025-05-17] VITALS (27 sets, daily range): BP systolic 70–150; BP diastolic 34–74; PULSE 43–92; RESP 12–18; TEMP 36.2–36.9; O2SAT 96–100
[2025-05-17 00:38] LABS: Hematocrit 22.8 % (42.0-52.0)
[2025-05-17 00:41] LABS: Hemoglobin 6.9 g/dL (14.0-18.0)
[2025-05-17 00:46] LABS: Anion Gap 9 mmol/L (4-12); Blood Urea Nitrogen 14 mg/dL (9-20); Calcium 8.6 mg/dL (8.4-10.2); Carbon Dioxide 22 mmol/L (22-30); Chloride 97 mmol/L (98-107); Estimated CRCL calculation 115 ml/min; Estimated Glomerular Filt Rate > 60; Glucose 99 mg/dL (65-110); Potassium 3.4 mmol/L (3.4-5.0); Sodium 128 mmol/L (137-145)
[2025-05-17] MEDS: TUBING, BLOOD PLUM PUMP TUBING 1 EACH XX (01:15)
[2025-05-17] MEDS: SODIUM CHLORIDE 0.9% IV 250 ML 30 ML IV CONT (01:15)
[2025-05-17] MEDS: SODIUM CHLORIDE 0.9% IV 1,000 ML 999 ML IV CONT (01:50)
--- NOTE | 2025-05-17 02:24 | ECG_ITS ---
Test Date: 2025-05-17 02:48:50 Measurements Intervals [place] Rate: 58 P: 0 AR: 0 QRS: 20 QRSD: 114 T: 1 QT: 418 QTc: 413 Interpretive Statements ATRIAL FIBRILLATION WITH SLOW VENTRICULAR RESPONSE WITH ABERRANT CONDUCTION OR VENTRICULAR PREMATURE COMPLEXES INCOMPLETE RIGHT BUNDLE BRANCH BLOCK LOW QRS VOLTAGE- DIFFUSE LEADS BORDERLINE ST-T WAVE ABNORMALITY- ANT/INF LEADS ABNORMAL ECG Compared to ECG 05/16/2025 11:13:37 HEART RATE HAS DECREASED Electronically Signed On 05-17-2025 05:18:46 CDT by Panchito Ingram D.O.
[2025-05-17] MEDS: SODIUM CHLORIDE 0.9% IV 1,000 ML 100 ML IV CONT (02:52)
[2025-05-17 03:56] LABS: Hematocrit 23.5 % (42.0-52.0); Hemoglobin 7.1 g/dL (14.0-18.0); Mean Corpuscular HGB Conc 30.2 g/dl (32-36); Mean Corpuscular Hemoglobin 22.9 pg (26-34); Mean Corpuscular Volume 75.8 fl (80-100); Platelet Count Result 196 k/mm3 (150-375); Red Blood Count 3.10 M/mm3 (4.6-6.20); White Blood Count 7.1 K/mm3 (4.5-10.0)
[2025-05-17 04:22] LABS: Alanine Aminotransferase 11 U/L (6-50); Albumin Level 3.3 g/dL (3.5-5.1); Alkaline Phosphatase 62 U/L (38-126); Anion Gap 8 mmol/L (4-12); Aspartate Amino Transferase 20 U/L (17-59); Bilirubin,Total 0.9 mg/dL (0.2-1.3); Blood Urea Nitrogen 13 mg/dL (9-20); Calcium 8.2 mg/dL (8.4-10.2); Carbon Dioxide 21 mmol/L (22-30); Chloride 100 mmol/L (98-107); Estimated CRCL calculation 121 ml/min; Estimated Glomerular Filt Rate > 60; Glucose 85 mg/dL (65-110); Magnesium 1.7 mg/dL (1.6-2.3); Potassium 3.6 mmol/L (3.4-5.0); Sodium 129 mmol/L (137-145); Total Protein 6.3 g/dL (6.3-8.2)
[2025-05-17] MEDS: POTASSIUM CHLORIDE 20 MEQ PACKET (FOR LIQUID) 40 MEQ PO (08:47)
[2025-05-17] MEDS: PANTOPRAZOLE SODIUM IV 40 MG VIAL IV PUSH (08:48)
[2025-05-17] MEDS: GABAPENTIN 300 MG CAPSULE 600 MG PO ×2 (08:48→22:44)
[2025-05-17] MEDS: FAMOTIDINE 20 MG TABLET 40 MG PO (08:49)
[2025-05-17] MEDS: FERROUS SULFATE 325 MG TABLET PO (08:49)
[2025-05-17] MEDS: FLUTICASONE PROPIONATE 0.05% NA SPR 16 GM BTL (*BKC) 1 SPRAY NASAL (08:50)
[2025-05-17] MEDS: MAGNESIUM SULF 1 GM/D5W 100 ML 1 GM/100 ML BAG IVPB (09:01)
[2025-05-17] MEDS: ONDANSETRON INJ 4 MG/2 ML VIAL IV PUSH (10:17)
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
[2025-05-17] MEDS: BISACODYL 5 MG TABLET EC 20 MG PO (17:14)
[2025-05-17] MEDS: SIMVASTATIN 10 MG TABLET PO (17:17)
[2025-05-17 20:20] LABS: Hematocrit 27.9 % (42.0-52.0); Hemoglobin 8.4 g/dL (14.0-18.0)
[2025-05-17 21:52] LABS: IFOB Positive Control Positive; Immunochemical Fecal Occult Bl Negative (N)
[2025-05-17] MEDS: TIZANIDINE HCL 4 MG TABLET PO (22:45)
[2025-05-18] VITALS (13 sets, daily range): BP systolic 100–159; BP diastolic 54–95; PULSE 49–104; RESP 16–20; TEMP 35.7–36.6; O2SAT 98–100
[2025-05-18] MEDS: MAGNESIUM CITRATE 300 ML BTL PO (01:06)
[2025-05-18 04:30] LABS: Hematocrit 28.1 % (42.0-52.0); Hemoglobin 8.2 g/dL (14.0-18.0); Mean Corpuscular HGB Conc 29.2 g/dl (32-36); Mean Corpuscular Hemoglobin 22.7 pg (26-34); Mean Corpuscular Volume 77.8 fl (80-100); Platelet Count Result 244 k/mm3 (150-375); Red Blood Count 3.61 M/mm3 (4.6-6.20); White Blood Count 10.6 K/mm3 (4.5-10.0)
[2025-05-18 04:47] LABS: Anion Gap 10 mmol/L (4-12); Blood Urea Nitrogen 8 mg/dL (9-20); Calcium 9.1 mg/dL (8.4-10.2); Carbon Dioxide 20 mmol/L (22-30); Chloride 103 mmol/L (98-107); Estimated CRCL calculation 127 ml/min; Estimated Glomerular Filt Rate > 60; Glucose 94 mg/dL (65-110); Magnesium 2.0 mg/dL (1.6-2.3); Potassium 4.0 mmol/L (3.4-5.0); Sodium 133 mmol/L (137-145)
[2025-05-18] MEDS: GABAPENTIN 300 MG CAPSULE 600 MG PO ×2 (08:21→20:34)
[2025-05-18] MEDS: FERROUS SULFATE 325 MG TABLET PO (08:22)
[2025-05-18] MEDS: CHOLECALCIFEROL (VITAMIN D3) 25 MCG (1,000 UNITS) TABLET PO (08:23)
[2025-05-18] MEDS: PANTOPRAZOLE SODIUM IV 40 MG VIAL IV PUSH (10:36)
[2025-05-18] MEDS: DEXTROSE 5% 1,000 ML 1,000 ML 50 ML IVPB (12:00)
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
[2025-05-18] MEDS: LACTATED RINGERS 1,000 ML 150 ML IV CONT (14:20)
--- NOTE | 2025-05-18 14:44 | P.PNAN_ITS ---
Anes - Initial Pre Proc Eval Procedure: Operation Date: 05/18/25 14:30 Proposed Procedures p EGD & Diagnostic Colonoscopy - Kevin Mccloud MD Date/Time: 05/18/25 14:44 Surgeon: Nicolas Pre Op Diagnosis: Microcytic Anemia Patient Data Age: 64 Gender: M Height: 1.98 m Weight: 184.6 kg Last Vital Signs Temp 35.7 C L 05/18/25 14:27 Pulse 66 05/18/25 14:27 Resp 18 05/18/25 14:27 BP 159/95 H 05/18/25 14:27 Pulse Ox 100 05/18/25 14:27 O2 Del Method Room Air 05/18/25 14:27 FiO2 21 05/16/25 20:31 Allergies Allergy/AdvReac Type Severity Reaction Status Date / Time diclofenac (From [facility]) AdvReac Intermediate Redness of Verified 05/18/25 14:25 Skin Home Medications ?Medication ?Instructions ?Recorded ?Confirmed ?Type rivaroxaban 20 mg tablet (Xarelto) 20 mg PO DAILY@1700 #30 tabs 02/25/22 05/16/25 Rx albuterol sulfate 2.5 mg/3 mL 2.5 mg (3 mL) inhalation Q4-6H PRN 02/27/22 05/16/25 Rx (0.083 %) solution for nebulization shortness of breat h or wheezing #540 mL fluticasone propionate 50 1 spray intranasal BID #16 g zeb 02/27/22 05/16/25 Rx mcg/actuation nasal spray,suspension (Flonase Allergy Relief) famotidine 20 mg tablet 40 mg PO DAILY 04/15/2209/09 History simvastatin 10 mg tablet See Rx Instructions .Route 0 08/30/24 05/16/25 Rx .COMPLEX #100 tabs mupirocin 2 % topical ointment See Rx Instructions .Ro mike 09/01/24 05/16/25 Rx .COMPLEX #15 grams carvedilol 6.25 mg tablet See Rx Instructions .Route 0 10/10/24 05/16/25 Rx .COMPLEX #200 tabs gabapentin 600 mg tablet See Rx Instructions .Route 0 10/31/24 05/16/25 Rx .COMPLEX #180 tabs tizanidine 4 mg tablet See Rx Instructions .Route 0 12/19/24 05/16/25 Rx .COMPLEX #90 tabs semaglutide 2 mg/dose (8 mg/3 mL) 2 mg (0.75 mL) subcu t WEEKLY #9 mL 02/15/25 05/16/25 Rx subcutaneous pen injector (Ozempic) lisinopril 20 See Rx Instructions .Route 0 03/20/25 05/16/25 Rx mg-hydrochlorothiazide 25 mg tablet .COMPLEX #100 tabs albuterol sulfate 90 mcg/actuation 1 inh inhalation Q4 H PRN shortness 04/09/25 05/16/25 Rx aerosol inhaler (Ventolin HFA) of breath or wheezing # 25.5 grams Laboratory Tests 05/17/25 05/17/25 05/17/25 16:11 20:14 20:32 WBC RBC Hgb 8.4 L g/dL (14.0-18.0) Hct 27.9 L % (42.0-52.0) MCV MCH MCHC RDW Plt Count MPV Sodium Potassium Chloride Carbon Dioxide Anion Gap BUN Creatinine Estim Creat Clear Calc Estimated GFR Glucose POC Capillary Glucose 100 mg/dl 78 mg/dl (65-105) (65-105) Calcium Magnesium Stl Occult Blood (IFOB) 05/17/25 05/18/25 05/18/25 21:31 04:14 07:06 WBC 10.6 H K/mm3 (4.5-10.0) RBC 3.61 L M/mm3 (4.6-6.20) Hgb 8.2 L g/dL (14.0-18.0) Hct 28.1 L % (42.0-52.0) MCV 77.8 L fl (80-100) MCH 22.7 L pg (26-34) MCHC 29.2 L g/dl (32-36) RDW 17.4 H % (11.5-14.5) Plt Count 244 k/mm3 (150-375) MPV 8.9 fl (7.4-10.4) Sodium 133 L mmol/L (137-145) Potassium 4.0 mmol/L (3.4-5.0) Chloride 103 mmol/L (98-107) Carbon Dioxide 20 L mmol/L (22-30) Anion Gap 10 mmol/L (4-12) BUN 8 L D mg/dL (9-20) Creatinine 0.99 mg/dL (0.7-1.3) Estim Creat Clear Calc 127 ml/min Estimated GFR > 60 (59 - ) Glucose 94 mg/dL (65-110) POC Capillary Glucose 83 mg/dl (65-105) Calcium 9.1 mg/dL (8.4-10.2) Magnesium 2.0 mg/dL (1.6-2.3) Stl Occult Blood (IFOB) Negative (N) 05/18/25 05/18/25 11:37 14:19 WBC RBC Hgb Hct MCV MCH MCHC RDW Plt Count MPV Sodium Potassium Chloride Carbon Dioxide Anion Gap BUN Creatinine Estim Creat Clear Calc Estimated GFR Glucose POC Capillary Glucose 77 mg/dl 74 mg/dl (65-105) (65-105) Calcium Magnesium Stl Occult Blood (IFOB) Patient hx anesthesia problems: none Family hx anesthesia problems: none Results Review: All pre-operative results and documents have been reviewed as part of the pre- operative evaluation. [facility] Past Medical History Medical History (Updated 05/17/25 @ 14:29 by Josette Hardin APRN) Diabetes mellitus Sleep apnea Asthma DVT (deep venous thrombosis) Atrial fibrillation Other cervical disc displacement, unspecified cervical region Spinal stenosis, cervical region Other dorsalgia History of myocardial infarction Gastroenteritis Chronic venous stasis dermatitis Cellulitis and abscess of lower extremity Influenza COVID-19 Chronic pain Allergic reaction Hyperlipidemia Hyperlipidemia HTN (hypertension) COPD (chronic obstructive pulmonary disease) Surgical History Surgical History History of excision of mass on back of next History of ear surgery right Family History Family History Father Family history of coronary artery disease Acute myocardial infarction, Onset Age: 63 Mother Cerebrovascular accident, Onset Age: 46 Social History Social History Social History: Patient does not drink caffeine, patient exercises daily. Smoking packs per day: 1.5 Smoking cigarettes per day: 30.0 Years smoked: 13 Smoking pack-years: 19.50 Smoking status: Former smoker Tobacco type: cigarettes Second hand tobacco smoke exposure: Yes Additional smoking assessment comments: quit smoking in 1986 Alcohol intake: current Drinks per week: 1 Alcohol use details: very rarely Substance use: current Substance use type: marijuana Other substance usage details: edibles Last use: 04/14/22 Do You Feel Safe in your Home?: Yes Lack of Transportation: No Lack of Food: Never True Current Housing: I Have Housing Concerned About Future Housing: No Difficulty Paying Gas/Electric Bills: YES Difficulty Paying for Meds: YES Currently Unemployed: No Education: High School Diploma/GED Difficulty w/ Childcare or Family Care: No Living arrangements: with family Additional living arrangements comments: Patient is . Occupation/Education: other Additional occupation/education comments: Patient is disabled. Gender identity (if verbalized by the patient): Male Sexual Orientation (if Verbalized by the Patient): Straight or Heterosexual Spiritual care concerns: No Agree to blood products: No Anes - Eval Final PreProcedure Day of Procedure 05/18/25 14:44 Patient weight: morbidly obese Heart: regular rate and rhythm Lungs: clear to auscultation Airway: Mallampati scale class III Neurological: alert and oriented Last oral intake: >/= 8 hours ASA classification: III Emergent: no Anesthetic plan: proceed Anesthesia type and monitoring: general GIVS and standard monitoring Results Review: All pre-operative results and documents have been reviewed as part of the pre- operative evaluation. Informed Consent: The patient's anesthetic plan and its attendant risks and benefits were discussed with the patient/family/POA. Questions were solicited and answers provided to the satisfaction of the patient/family/POA.
--- NOTE | 2025-05-18 16:16 | SUR.OPER ---
EGD ENDED AT 1610, COLONOSCOPY STARTED AT 1615
--- NOTE | 2025-05-18 16:24 | S_PTH ---
PATIENT: Yuri Guo LOC: [id number] U#:[id number] AGE/SX: 64/M ROOM: 315 RE05/19/[address]: Nicolas Jerry MD : 1960 BED: 02 DIS: 05/21/2025 SPEC #: [id number] RECD: 05/21/25 08:54 STATUS: SHAQ REEmilie #: [id number] CL: 05/18/25 16:[address]: Kevin Mccloud DEPT: [facility] Surgical RECD BY: Fannie Fitzpatrick ENTERED: 05/21/25 08:54 SP TYPE: Surgical OTHR DR: MD Adolfo Whitaker MD Tissues: A - Gastric Biopsy Procedures: Hematoxylin and Eosin Stain Gross and Microscopic Level 4
[2025-05-18] MEDS: DEXTROSE 50% 25 GM/50 ML SYRINGE IV PUSH (16:58)
--- NOTE | 2025-05-18 17:05 | SUR.PHASEII ---
Patient's blood sugar is 69 after giving soda per orders by Dr. Thmoas. Called anesthesia and requested to give 1/2 amp of D 50% per PRN orders. Fam DEL CASTILLO okay to give 25ml D 50%.
[2025-05-18] MEDS: SIMVASTATIN 10 MG TABLET PO (17:39)
[2025-05-18] MEDS: SALINE 0.65% NAS SOLN 44 ML BTL 1 SPRAY NASAL (17:41)
[2025-05-18] MEDS: HYDROcodone/acetaminophen (*CRX) 5-325 MG TABLET 1 TAB PO (20:35)
[2025-05-18] MEDS: TIZANIDINE HCL 4 MG TABLET PO (20:36)
[2025-05-19] VITALS (11 sets, daily range): BP systolic 113–149; BP diastolic 58–84; PULSE 59–79; RESP 16–18; TEMP 36.4–36.8; O2SAT 98–100
[2025-05-19 06:21] LABS: Hematocrit 25.8 % (42.0-52.0); Hemoglobin 7.6 g/dL (14.0-18.0); Immature Granulocyte Percent A 0.7 % (0-0.5); Lymphocytes Absolute Auto 1.43 K/mm3 (0.9-3.2); Mean Corpuscular HGB Conc 29.5 g/dl (32-36); Mean Corpuscular Hemoglobin 23.2 pg (26-34); Mean Corpuscular Volume 78.7 fl (80-100); Nucleated Red Blood Cells Absolute Auto 0.000 K/mm3 (0.0-0.012); Nucleated Red Blood Cells Perc 0.0 % (0.0-0.2); Platelet Count Result 200 k/mm3 (150-375); Red Blood Count 3.28 M/mm3 (4.6-6.20); White Blood Count 7.6 K/mm3 (4.5-10.0)
[2025-05-19 06:49] LABS: Alanine Aminotransferase 11 U/L (6-50); Albumin Level 3.4 g/dL (3.5-5.1); Alkaline Phosphatase 63 U/L (38-126); Anion Gap 6 mmol/L (4-12); Aspartate Amino Transferase 22 U/L (17-59); Bilirubin,Total 0.7 mg/dL (0.2-1.3); Blood Urea Nitrogen 7 mg/dL (9-20); Calcium 8.7 mg/dL (8.4-10.2); Carbon Dioxide 24 mmol/L (22-30); Chloride 101 mmol/L (98-107); Estimated CRCL calculation 130 ml/min; Estimated Glomerular Filt Rate > 60; Glucose 83 mg/dL (65-110); Magnesium 2.1 mg/dL (1.6-2.3); Potassium 3.5 mmol/L (3.4-5.0); Sodium 131 mmol/L (137-145); Total Protein 6.4 g/dL (6.3-8.2)
[2025-05-19 07:06] LABS: Anisocytosis 1+; Hypochromasia 1+; Polychromasia 1+
[2025-05-19 07:07] LABS: Schistocytes None Seen
[2025-05-19] MEDS: GABAPENTIN 300 MG CAPSULE 600 MG PO ×2 (11:21→20:31)
[2025-05-19] MEDS: CHOLECALCIFEROL (VITAMIN D3) 25 MCG (1,000 UNITS) TABLET PO (11:22)
[2025-05-19] MEDS: FERROUS SULFATE 325 MG TABLET PO (11:22)
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
[2025-05-19] MEDS: IRON SUCROSE COMPLEX 200 MG, IRON SUCROSE COMPLEX 100 MG in SODIUM CHLORIDE 0.9% IV 250 ML 176.67 MG IVPB (15:00)
[2025-05-19] MEDS: FLUTICASONE PROPIONATE 0.05% NA SPR 16 GM BTL (*BKC) 1 SPRAY NASAL (17:00)
[2025-05-19] MEDS: SIMVASTATIN 10 MG TABLET PO (18:07)
[2025-05-19] MEDS: TIZANIDINE HCL 4 MG TABLET PO (20:31)
[2025-05-20] VITALS (10 sets, daily range): BP systolic 126–176; BP diastolic 71; PULSE 62–85; RESP 18–20; TEMP 36.1–36.6; O2SAT 100
[2025-05-20] MEDS: HYDROcodone/acetaminophen (*CRX) 5-325 MG TABLET 1 TAB PO ×2 (02:05→22:40)
[2025-05-20 06:52] LABS: Hematocrit 24.3 % (42.0-52.0); Hemoglobin 7.2 g/dL (14.0-18.0); Immature Granulocyte Percent A 0.7 % (0-0.5); Lymphocytes Absolute Auto 1.36 K/mm3 (0.9-3.2); Mean Corpuscular HGB Conc 29.6 g/dl (32-36); Mean Corpuscular Hemoglobin 23.5 pg (26-34); Mean Corpuscular Volume 79.2 fl (80-100); Nucleated Red Blood Cells Absolute Auto 0.000 K/mm3 (0.0-0.012); Nucleated Red Blood Cells Perc 0.0 % (0.0-0.2); Platelet Count Result 201 k/mm3 (150-375); Red Blood Count 3.07 M/mm3 (4.6-6.20); White Blood Count 6.8 K/mm3 (4.5-10.0)
[2025-05-20 07:18] LABS: Alanine Aminotransferase 11 U/L (6-50); Albumin Level 3.1 g/dL (3.5-5.1); Alkaline Phosphatase 65 U/L (38-126); Anion Gap 7 mmol/L (4-12); Aspartate Amino Transferase 24 U/L (17-59); Bilirubin,Total 0.5 mg/dL (0.2-1.3); Blood Urea Nitrogen 6 mg/dL (9-20); Calcium 8.4 mg/dL (8.4-10.2); Carbon Dioxide 23 mmol/L (22-30); Chloride 103 mmol/L (98-107); Estimated CRCL calculation 139 ml/min; Estimated Glomerular Filt Rate > 60; Glucose 79 mg/dL (65-110); Magnesium 2.1 mg/dL (1.6-2.3); Potassium 3.6 mmol/L (3.4-5.0); Sodium 133 mmol/L (137-145); Total Protein 6.0 g/dL (6.3-8.2)
[2025-05-20 07:28] LABS: Anisocytosis 1+; Hypochromasia 2+
[2025-05-20 07:29] LABS: Schistocytes None Seen
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
[2025-05-20] MEDS: IRON SUCROSE COMPLEX 200 MG, IRON SUCROSE COMPLEX 100 MG in SODIUM CHLORIDE 0.9% IV 250 ML 176.67 MG IVPB (09:07)
[2025-05-20] MEDS: GABAPENTIN 300 MG CAPSULE 600 MG PO ×2 (09:11→21:31)
[2025-05-20] MEDS: FERROUS SULFATE 325 MG TABLET PO (09:11)
[2025-05-20] MEDS: CHOLECALCIFEROL (VITAMIN D3) 25 MCG (1,000 UNITS) TABLET PO (09:12)
[2025-05-20] MEDS: FLUTICASONE PROPIONATE 0.05% NA SPR 16 GM BTL (*BKC) 1 SPRAY NASAL (09:15)
[2025-05-20] MEDS: SALINE 0.65% NAS SOLN 44 ML BTL 1 SPRAY NASAL (12:31)
[2025-05-20] MEDS: SIMVASTATIN 10 MG TABLET PO (17:07)
[2025-05-20 17:41] LABS: Hematocrit 27.2 % (42.0-52.0); Hemoglobin 8.1 g/dL (14.0-18.0)
[2025-05-20] MEDS: TIZANIDINE HCL 4 MG TABLET PO (21:31)
[2025-05-21] VITALS (8 sets, daily range): BP systolic 128–159; BP diastolic 71–79; PULSE 62–82; RESP 17–18; TEMP 36.2–36.4; O2SAT 100
[2025-05-21 06:07] LABS: Osmolality, Urine 185 mOsmol/kg (.)
[2025-05-21 07:12] LABS: Hematocrit 28.3 % (42.0-52.0); Hemoglobin 8.0 g/dL (14.0-18.0); Immature Granulocyte Percent A 1.3 % (0-0.5); Lymphocytes Absolute Auto 1.65 K/mm3 (0.9-3.2); Mean Corpuscular HGB Conc 28.3 g/dl (32-36); Mean Corpuscular Hemoglobin 23.3 pg (26-34); Mean Corpuscular Volume 82.5 fl (80-100); Nucleated Red Blood Cells Absolute Auto 0.000 K/mm3 (0.0-0.012); Nucleated Red Blood Cells Perc 0.0 % (0.0-0.2); Platelet Count Result 223 k/mm3 (150-375); Red Blood Count 3.43 M/mm3 (4.6-6.20); White Blood Count 8.5 K/mm3 (4.5-10.0)
[2025-05-21 07:40] LABS: Alanine Aminotransferase 15 U/L (6-50); Albumin Level 3.5 g/dL (3.5-5.1); Alkaline Phosphatase 64 U/L (38-126); Anion Gap 9 mmol/L (4-12); Aspartate Amino Transferase 24 U/L (17-59); Bilirubin,Total 0.6 mg/dL (0.2-1.3); Blood Urea Nitrogen 5 mg/dL (9-20); Calcium 8.8 mg/dL (8.4-10.2); Carbon Dioxide 25 mmol/L (22-30); Chloride 102 mmol/L (98-107); Estimated CRCL calculation 127 ml/min; Estimated Glomerular Filt Rate > 60; Glucose 84 mg/dL (65-110); Magnesium 2.1 mg/dL (1.6-2.3); Potassium 4.2 mmol/L (3.4-5.0); Sodium 136 mmol/L (137-145); Total Protein 6.6 g/dL (6.3-8.2)
[2025-05-21 08:29] LABS: Anisocytosis 1+; Hypochromasia 1+; Microcytosis Occasional (NORMAL)
[2025-05-21] MEDS: FLUTICASONE PROPIONATE 0.05% NA SPR 16 GM BTL (*BKC) 1 SPRAY NASAL (09:40)
[2025-05-21] MEDS: CHOLECALCIFEROL (VITAMIN D3) 25 MCG (1,000 UNITS) TABLET PO (09:40)
[2025-05-21] MEDS: FERROUS SULFATE 325 MG TABLET PO (09:40)
[2025-05-21] MEDS: GABAPENTIN 300 MG CAPSULE 600 MG PO (09:40)
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
[2025-05-23 16:08] LABS: Osmolality, Serum 263 mOsmol/kg (280-301)
== END 2025-05-21 14:45 | disposition home or self-care (01) | DRG 812 ==
LOC: ANHED 12:09 → ANHIMU 13:35 → ANH3MEDSUR 05-18 10:19
PROVIDERS: Internal Medicine; Internal Medicine Gastroenterology; Nurse Practitioner; Student in an Organized Health Care Education/Training Program; Admitting Provider General Practice; Emergency Provider Emergency Medicine; PCP Emergency Medicine; Visit Provider Internal Medicine
PROC: 0DJ08ZZ Inspection of Upper Intestinal Tract, Via Natural or Artificial Opening Endoscopic (ICD-10-PCS; CPT 45378; principal; 2025-05-18 14:30)
DX: D50.9 Iron deficiency anemia, unspecified (principal); N17.9 Acute kidney failure, unspecified; E87.1 Hypo-osmolality and hyponatremia; I48.19 Other persistent atrial fibrillation; Z68.42 Body mass index [BMI] 45.0-49.9, adult; K59.01 Slow transit constipation; I25.10 Atherosclerotic heart disease of native coronary artery without angina pectoris; I25.2 Old myocardial infarction; E66.9 Obesity, unspecified; E11.42 Type 2 diabetes mellitus with diabetic polyneuropathy; E78.5 Hyperlipidemia, unspecified; I10 Essential (primary) hypertension; G47.33 Obstructive sleep apnea (adult) (pediatric); I87.8 Other specified disorders of veins; J44.9 Chronic obstructive pulmonary disease, unspecified; K21.9 Gastro-esophageal reflux disease without esophagitis; K64.8 Other hemorrhoids; Z79.01 Long term (current) use of anticoagulants; Z99.89 Dependence on other enabling machines and devices; Z86.718 Personal history of other venous thrombosis and embolism; Z87.891 Personal history of nicotine dependence; Z79.85 Long-term (current) use of injectable non-insulin antidiabetic drugs
CPT/HCPCS: 36415; 36430; 71275; 74174; 74177; 80048; 80053; 81001; 82274; 82550; 82570; 82607; 82728; 82746; 82948; 83540; 83550; 83735; 83930; 83935; 84100; 84156; 84300; 84443; 84540; 85014; 85018; 85025; 85027; 85046; 85610; 85730; 86850; 86900; 86901; 86923; 88305; 93005; 96361; 99285; A9270; G0378; J1756; J2003; J2405; J2470; J2704; J3475; J7030; J7050; J7070; J7120; P9016; Q9967